=== PATIENT | female | born 1935 | race Caucasian/White ===

== ENCOUNTER → 2017-05-03 | Outpatient (CLI) | payer OTHER, MEDICARE ==
[2016-11-17 12:30] VITALS: BP 127/50
[2017-05-03 16:12] LABS: BASOPHILS # (AUTO) 0.1 X10^3/uL (0.0-0.1); BASOPHILS % (AUTO) 0.9 % (0.2-1.0); EOSINOPHILS % (AUTO) 0.5 % (0.9-2.9); HEMATOCRIT 34.6 % (36.0-47.0); HEMOGLOBIN 11.8 g/dL (12.0-16.0); LYMPHOCYTES # (AUTO) 1.1 X10^3/uL (1.3-2.9); LYMPHOCYTES % (AUTO) 15.1 % (21.0-51.0); MEAN CORPUSCULAR HEMOGLOBIN 31.4 pg (27.0-34.0); MEAN CORPUSCULAR VOLUME 92.3 fL (80.0-100.0); MEAN PLATELET VOLUME 8.2 fL (7.4-11.0); MONOCYTES # (AUTO) 0.9 x10^3/uL (0.3-0.8); MONOCYTES % (AUTO) 12.6 % (0.0-13.0); NEUTROPHILS # (AUTO) 5.2 x10^3/uL (2.2-4.8); NEUTROPHILS % (AUTO) 70.9 % (42.0-75.0); PLATELET COUNT 276 X10^3/uL (150.0-450.0); RED BLOOD COUNT 3.75 X10^6/uL (3.5-5.4); RED CELL DISTRIBUTION WIDTH 13.4 % (11.6-16.5); WHITE BLOOD COUNT 7.4 X10^3/uL (3.6-10.0)
== END ==
LOC: LAB 15:44
PROVIDERS: ATTEND Internal Medicine Gastroenterology
DX: D50.8 Other iron deficiency anemias (principal)
CPT/HCPCS: 36415; 85025

== ENCOUNTER 2023-06-17 07:14 | Inpatient (IN) ==
[2023-06-17] MEDS ORDERED: ZOFRAN INJ 4 MG VIAL ONE ×2 (07:17→09:26)
[2023-06-17] MEDS ORDERED: ZOFRAN INJ 4 MG VIAL IVP ONE ×2 (07:21→09:24)
--- NOTE | 2023-06-17 07:26 | DR.URIAD ---
HPI Time Seen Time Seen by Provider: 06/17/23 07:25 Complaint Chief Complaint Doctors Comments: Diagnosed with covid-19 on Tuesday at her doctor's office.Patient was given a prednisone shot and another shot that she can't remember. Patient presents because she feels like she has gone downhill since her diagnosis. She c/o,cough,bodyaches,weakness,abdl pain bilateral lower quadrant.Patient has a h/o Afib and takes eliquis.She denies: hemoptysis,hematmesis,hematochezia, headache,chest pain,back pain. PMH PMH Past Medical History: Arthritis Past Surgical History: Yes Surgical History: Unknown, Ortho Surgery and Tonsillectomy Family History Family Medical History: Cancer Social History Do you use any recreational Drugs:: No ROS Review of Systems Constitutional: Malaise Eyes: No Symptoms Reported ENTM: No Symptoms Reported Respiratoy: Dry Cough Cardiovascular: No Symptoms Reported; negative Chest Pain Gastrointestinal/Abdominal: Nausea; negative Diarrhea or Vomiting Genitourinary: No Symptoms Reported Neurological: Weakness; negative Headache, Numbness, Paresthesia, Tingling or Dizziness Musculoskeletal: No Symptoms Reported; negative Back Pain Integumentary: No Symptoms Reported Hematologic/Lymphatic: No Symptoms Reported Endocrine: No Symptoms Reported Psychiatric: No Symptoms Reported All Other Systems: Reviewed and Negative PE Vital Signs Vitals: Vital Signs Temperature 98.9 F Pulse Rate 89 Pulse Rate 95 Pulse Rate 127 Pulse Rate 98 Respiratory Rate 20 Blood Pressure 170/74 Blood Pressure 135/98 O2 Sat by Pulse Oximetry 98 O2 Sat by Pulse Oximetry 100 O2 Sat by Pulse Oximetry 98 O2 Sat by Pulse Oximetry 98 General Limitations: No Limitations General Appearance: Alert and In No Apparent Distress Head Head Exam: Normal Inspection Eyes Eye exam: Normal Appearance, PERRL and EOMI ENT ENT Exam: Normal Exam and Mucous Membranes Moist External Ear Exam: Normal External Inspection TM/Canal Exam: Bilateral: Normal Nose Exam: Normal Nose Exam Nasal Speculum Exam: Bilateral: Normal Mouth Exam: Normal Inspection Throat Exam: Normal Inspection Neck Neck Exam: Normal Inspection Chest Chest Inspection: Normal Inspection Respiratory Respiratory Exam: Normal Lung Sounds Bilat Respiratory Exam: Bilateral: Clear to Auscultation Cardiovascular Cardiovascular Exam: Regular Rate and Normal Rhythm Abdominal Exam Abdominal Exam: Normal Inspection, Normal Bowel Sounds, Soft and Tenderness Abdominal Tenderness: RLQ and LLQ Extremeties Extremities Exam: Normal Inspection Back Back Exam: Normal Inspection Neurologic Neurological Exam: Alert and Oriented X3 Psychiatric Psychiatric Exam: Normal Affect and Normal Mood Skin Skin Exam: Warm, Dry, Intact and Normal Color MDM Differential Diagnosis Differential Diagnosis: Pneumonia (Electrolyte abnormalities, UTI,OK,PE) COURSE Treatment Treatment: Patient was brought to a monitored room and had an 02 sat of 98%.Patient was nauseated and was given zofran 4mg iv.Patient is receiving NS bolus 500ml iv. 08:[address] Arce who will review labs and disposition patient. ROR Labs Reviewed 06/19/23 05:40 06/19/23 05:40 Laboratory: WBC 6.2 X10^3/uL (3.6-10.0) 06/17/23 07:37 RBC 4.25 X10^6/uL (3.5-5.4) 06/17/23 07:37 Hgb 13.3 g/dL (12.0-16.0) 06/17/23 07:37 Hct 39.0 % (36.0-47.0) 06/17/23 07:37 MCV 91.9 fL (80.0-100.0) 06/17/23 07:37 MCH 31.3 pg (27.0-34.0) 06/17/23 07:37 MCHC 34.1 g/dL (33.0-35.0) 06/17/23 07:37 RDW 13.2 % (11.6-16.5) 06/17/23 07:37 Plt Count 155 X10^3/uL (150.0-450.0) 06/17/23 07:37 MPV 9.1 fL (7.4-11.0) 06/17/23 07:37 Neut % (Auto) 76.5 % (42.0-75.0) H 06/17/23 07:37 Lymph % (Auto) 11.4 % (21.0-51.0) L 06/17/23 07:37 [place] % (Auto) 11.5 % (0.0-13.0) 06/17/23 07:37 Eos % (Auto) 0.4 % (0.9-2.9) L 06/17/23 07:37 Baso % (Auto) 0.2 % (0.2-1.0) 06/17/23 07:37 Neut # (Auto) 4.7 x10^3/uL (2.2-4.8) 06/17/23 07:37 Lymph # (Auto) 0.7 X10^3/uL (1.3-2.9) L 06/17/23 07:37 [place] # (Auto) 0.7 x10^3/uL (0.3-0.8) 06/17/23 07:37 Eos # (Auto) 0.0 x10^3/uL (0.0-0.2) 06/17/23 07:37 Baso # (Auto) 0.0 X10^3/uL (0.0-0.1) 06/17/23 07:37 Absolute Nucleated RBC 0.0 /100WBC 06/17/23 07:37 PT 14.6 SECONDS (11.8-14.3) 06/17/23 07:37 INR Target Range - 06/17/23 07:37 INR 1.16 (0.8-1.3) 06/17/23 07:37 APTT 32.6 SECONDS (22.9-36.5) 06/17/23 07:37 PTT Comment - 06/17/23 07:37 D-Dimer 1.25 ug/ml (0.0-0.57) H 06/17/23 07:37 Sodium 134 mmol/L (136-145) L 06/17/23 07:37 Corrected Sodium 135 mmol/L (136-145) L 06/17/23 07:37 Potassium 3.7 mmol/L (3.5-5.1) 06/17/23 07:37 Chloride 99 mmol/L (98-107) 06/17/23 07:37 Carbon Dioxide 24.5 mmol/L (21-32) 06/17/23 07:37 BUN 9 mg/dL (7-18) 06/17/23 07:37 Creatinine 0.71 mg/dL (0.55-1.02) 06/17/23 07:37 Est GFR (MDRD) Af Amer > 60 (>60) 06/17/23 07:37 Est GFR (MDRD) Non-Af > 60 (>60) 06/17/23 07:37 Glucose 130 mg/dL (65-99) H 06/17/23 07:37 Calcium 7.8 mg/dL (8.5-10.1) L 06/17/23 07:37 Corrected Calcium 8.4 mg/dL (8.5-10.1) L 06/17/23 07:37 Total Bilirubin 0.40 mg/dL (0.2-1.0) 06/17/23 07:37 AST 26 Units/L (15-37) 06/17/23 07:37 ALT 27 Units/L (12-78) 06/17/23 07:37 Alkaline Phosphatase 97 Units/L (46-116) 06/17/23 07:37 Creatine Kinase 64 Units/L (26-192) 06/17/23 07:37 Troponin I High Sens 10.1 ng/L (4.0-60.0) 06/17/23 07:37 Total Protein 6.0 g/dL (6.4-8.2) L 06/17/23 07:37 Albumin 3.2 g/dL (3.4-5.0) L 06/17/23 07:37 Globulin 2.8 g/dL (2.5-4.5) 06/17/23 07:37 Albumin/Globulin Ratio 1.1 Ratio (1.1-2.1) 06/17/23 07:37 Amylase 23 Units/L (25-115) L 06/17/23 07:37 Specimen Type Clean catch urine 06/17/23 08:25 Urine Color Straw (YELLOW) 06/17/23 08:25 Urine Appearance Clear (CLEAR) 06/17/23 08:25 Urine pH 7.0 (5.0 - 8.0) 06/17/23 08:25 Ur Specific [place] 1.015 (1.000-1.030) 06/17/23 08:25 Urine Protein Negative (NEGATIVE) 06/17/23 08:25 Urine Glucose (UA) Negative (NEGATIVE) 06/17/23 08:25 Urine Ketones 1+ (NEGATIVE) 06/17/23 08:25 Urine Blood Negative (NEGATIVE) 06/17/23 08:25 Urine Nitrite Negative (NEGATIVE) 06/17/23 08:25 Urine Bilirubin Negative (NEGATIVE) 06/17/23 08:25 Urine Urobilinogen Normal (NORMAL) 06/17/23 08:25 Ur Leukocyte Esterase Negative (NEGATIVE) 06/17/23 08:25 Opioid Opioid Risk Tool Total: 0 Total Score Risk Category: Low Risk Copyright: George MOODY predicting aberrant behaviors Discharge Plan Diagnosis Discharge Problem: COVID-19 Discharge Plan Patient Disposition: 09 ADMITTED INPATIENT Condition: Stable
[2023-06-17 07:45] LABS: BASOPHILS % (AUTO) 0.2 % (0.2-1.0); EOSINOPHILS % (AUTO) 0.4 % (0.9-2.9); HEMOGLOBIN 13.3 g/dL (12.0-16.0); LYMPHOCYTES # (AUTO) 0.7 X10^3/uL (1.3-2.9); LYMPHOCYTES % (AUTO) 11.4 % (21.0-51.0); MEAN CORPUSCULAR HEMOGLOBIN 31.3 pg (27.0-34.0); MEAN CORPUSCULAR HGB CONC 34.1 g/dL (33.0-35.0); MEAN CORPUSCULAR VOLUME 91.9 fL (80.0-100.0); MEAN PLATELET VOLUME 9.1 fL (7.4-11.0); MONOCYTES # (AUTO) 0.7 x10^3/uL (0.3-0.8); MONOCYTES % (AUTO) 11.5 % (0.0-13.0); NEUTROPHILS # (AUTO) 4.7 x10^3/uL (2.2-4.8); NEUTROPHILS % (AUTO) 76.5 % (42.0-75.0); PLATELET COUNT 155 X10^3/uL (150.0-450.0); RED BLOOD COUNT 4.25 X10^6/uL (3.5-5.4); RED CELL DISTRIBUTION WIDTH 13.2 % (11.6-16.5); WHITE BLOOD COUNT 6.2 X10^3/uL (3.6-10.0)
[2023-06-17 07:56] LABS: ALANINE AMINOTRANSFERASE 27 Units/L (12-78); ALBUMIN 3.2 g/dL (3.4-5.0); ALKALINE PHOSPHATASE 97 Units/L (46-116); ASPARTATE AMINO TRANSFERASE 26 Units/L (15-37); BLOOD UREA NITROGEN 9 mg/dL (7-18); CALCIUM 7.8 mg/dL (8.5-10.1); CARBON DIOXIDE 24.5 mmol/L (21-32); CHLORIDE 99 mmol/L (98-107); COR CA(FOR HYPOALB) 8.4 mg/dL (8.5-10.1); COR NA(FOR HYPERGLY) 135 mmol/L (136-145); CREATININE 0.71 mg/dL (0.55-1.02); GLUCOSE 130 mg/dL (65-99); POTASSIUM 3.7 mmol/L (3.5-5.1); SODIUM 134 mmol/L (136-145); eGFR NON BLACK RACES > 60 (>60)
[2023-06-17 08:09] LABS: INR 1.16 (0.8-1.3)
--- NOTE | 2023-06-17 08:28 | RAD ---
HISTORYWeakness, nausea, dyspneaSTUDYChest AP portableCOMPARISONNoneFINDINGSPatient is rotated to the left. Heart size is normal. Anastasiya are normal. Aorta is calcified. Lungs are free of acute infiltrates. No pleural effusions are identified. Bony thorax is unremarkable with the exception of osteopenia and thoracic dextroscoliosis.IMPRESSIONLungs clearElectronically signed by: URI WHARTON (Jun 17, 2023 08:26:52)
[2023-06-17 08:45] LABS: BILIRUBIN,URINE NEGATIVE (NEGATIVE); BLOOD/HEMOGLOBIN,URINE NEGATIVE (NEGATIVE); GLUCOSE, URINE NEGATIVE (NEGATIVE); KETONES,URINE 1+ (NEGATIVE); LEUKOCYTE ESTERASE ,URINE NEGATIVE (NEGATIVE); NITRITES,URINE NEGATIVE (NEGATIVE); PROTEIN,URINE NEGATIVE (NEGATIVE); UROBILINOGEN,URINE NORMAL (NORMAL)
[2023-06-17 08:47] LABS: APPEARANCE,URINE CLEAR (CLEAR); COLOR,URINE STRAW (YELLOW)
[2023-06-17] MEDS ORDERED: CATAPRES TAB 0.1 MG PO ONE ×2 (09:03→09:35)
[2023-06-17] MEDS ORDERED: CATAPRES TAB 0.1 MG ONE (09:06)
[2023-06-17] MEDS ORDERED: TESSALON PERLES PO ONE ×2 (09:21)
--- NOTE | 2023-06-17 09:26 | EKG ---
Test Reason : A-fib Blood Pressure : */* mmHG Vent. Rate : 96 BPM Atrial Rate : * BPM P-R Int : * ms QRS Dur : 72 ms QT Int : 364 ms P-R-T Axes : * -1 71 degrees QTc Int : 459 ms Atrial fibrillation Nonspecific ST and T wave abnormality Abnormal ECG No previous ECGs available Confirmed by Juan David Valero ([id number]) on 06/18/2023 6:28:52 AM Referred By: Confirmed By: Juan David Valero
[2023-06-17] MEDS ORDERED: ZOFRAN INJ 4 MG VIAL IVP PRN (09:47)
[2023-06-17] MEDS ORDERED: TESSALON PERLES PO PRN (09:47)
[2023-06-17] MEDS ORDERED: NS 1,000 ML IV 1,000 ML IV SCH (10:00)
[2023-06-17] MEDS: MOBIC TAB 15 MG PO SCH (13:45)
[2023-06-17] MEDS: ELIQUIS PO SCH ×2 (13:45→20:47)
[2023-06-17] MEDS: CARDIZEM CD 120 MG 24-HR PO SCH (13:46)
[2023-06-17] MEDS ORDERED: SOLU-Medrol 40 MG VIAL IVP SCH (15:00)
[2023-06-17] MEDS: NS 1,000 ML IV 1,000 ML IV SCH ×3 (15:01→23:30)
[2023-06-17] MEDS: LEVAQUIN PREMIX IV 500 MG 500 MG/100 ML BAG IV SCH (15:08)
[2023-06-17] MEDS ORDERED: DUONEB 0.5 MG/3 MG (3 mL) NEB ONE (16:12)
[2023-06-17] MEDS ORDERED: DUONEB 0.5 MG/3 MG (3 mL) NEB SCH (18:00)
[2023-06-17] MEDS ORDERED: ATIVAN INJ 2 MG VIAL IVP ONE (18:01)
[2023-06-17] MEDS ORDERED: ATIVAN INJ 2 MG VIAL ONE (18:06)
--- NOTE | 2023-06-17 21:49 | CT ---
EXAM:CTA, CHESTHISTORY:COVID +, ELEVATED D-DIMER;COMPARISON:Frontal chest radiograph June 17, 2023TECHNIQUE:CT angiography of the chest was performed utilizing intravenous contrast timed for peak pulmonary arterial enhancement. Three-dimensional and/or MIP imaging was performed by the technologist and reviewed.FINDINGS:Adequate bolus timing. Negative for pulmonary embolus. Severe scoliosis of the spine. The aorta demonstrates advanced multifocal atherosclerotic plaque. The ascending aorta is distended at 4.2 cm. No pericardial effusion.Limited evaluation of the upper abdomen demonstrates an abnormal masslike density in the tail of the pancreas spanning 4.5 by 3.0 cm incompletely evaluated and possibly representing pancreatic malignancy.Lung windows demonstrate bilateral ground-glass ill-defined nodular infiltrates suggesting infectious/inflammatory process. Some respiratory motion artifact reduces sensitivity.IMPRESSION:Negative for pulmonary embolus.Bilateral ground-glass ill-defined nodular infiltrates are reminiscent of COVID-19 pneumonia. Follow-up to document clearing is advised.Masslike density in the tail of the pancreas. Pancreatic malignancy may be present. Further workup is advised. Consider multiphase contrast-enhanced CT of the abdomen and pelvis for further detail versus multiphase abdominal MRI pancreatic mass protocol.THIS IS AN ELECTRONICALLY VERIFIED FINAL REPORT06/17/2023 9:46 PM - Electronically signed by Noman Walter MD
[2023-06-18 06:32] LABS: ALANINE AMINOTRANSFERASE 22 Units/L (12-78); ALBUMIN 2.8 g/dL (3.4-5.0); ALKALINE PHOSPHATASE 91 Units/L (46-116); ASPARTATE AMINO TRANSFERASE 23 Units/L (15-37); BLOOD UREA NITROGEN 6 mg/dL (7-18); CARBON DIOXIDE 24.7 mmol/L (21-32); CHLORIDE 103 mmol/L (98-107); COR NA(FOR HYPERGLY) 136 mmol/L (136-145); CREATININE 0.65 mg/dL (0.55-1.02); GLUCOSE 146 mg/dL (65-99); MAGNESIUM 1.9 mg/dL (2.0-2.9); POTASSIUM 4.1 mmol/L (3.5-5.1); SODIUM 135 mmol/L (136-145); TOTAL PROTEIN 5.4 g/dL (6.4-8.2); eGFR NON BLACK RACES > 60 (>60)
[2023-06-18 06:45] LABS: BASOPHILS % (AUTO) 0.1 % (0.2-1.0); EOSINOPHILS % (AUTO) 0.1 % (0.9-2.9); HEMOGLOBIN 12.2 g/dL (12.0-16.0); LYMPHOCYTES # (AUTO) 0.2 X10^3/uL (1.3-2.9); MEAN CORPUSCULAR HEMOGLOBIN 31.2 pg (27.0-34.0); MEAN CORPUSCULAR HGB CONC 33.8 g/dL (33.0-35.0); MEAN CORPUSCULAR VOLUME 92.1 fL (80.0-100.0); MEAN PLATELET VOLUME 8.8 fL (7.4-11.0); MONOCYTES # (AUTO) 0.2 x10^3/uL (0.3-0.8); MONOCYTES % (AUTO) 11.5 % (0.0-13.0); NEUTROPHILS # (AUTO) 1.3 x10^3/uL (2.2-4.8); NEUTROPHILS % (AUTO) 76.3 % (42.0-75.0); PLATELET COUNT 163 X10^3/uL (150.0-450.0); RED CELL DISTRIBUTION WIDTH 13.2 % (11.6-16.5)
[2023-06-18 06:53] LABS: WHITE BLOOD COUNT 1.8 X10^3/uL (3.6-10.0)
[2023-06-18] MEDS ORDERED: CONSULT PHARMACY - POTASSIUM & MAGNESIUM XX SCH (07:00)
[2023-06-18] MEDS: NS 1,000 ML IV 1,000 ML IV SCH ×3 (08:42→23:44)
[2023-06-18] MEDS: CARDIZEM CD 120 MG 24-HR PO SCH (08:43)
[2023-06-18] MEDS: MAG-OX TAB PO SCH ×2 (08:44→11:51)
[2023-06-18] MEDS: MOBIC TAB 15 MG PO SCH (08:44)
[2023-06-18] MEDS: ELIQUIS PO SCH ×2 (08:45→20:23)
[2023-06-18] MEDS: LEVAQUIN PREMIX IV 500 MG 500 MG/100 ML BAG IV SCH (08:46)
[2023-06-18] MEDS: SOLU-Medrol 40 MG VIAL IVP SCH (08:46)
[2023-06-18] MEDS ORDERED: OMNIPAQUE 350 mg/mL 100 mL BTL 100 ML ONE (10:06)
[2023-06-18] MEDS ORDERED: TUSSIONEX PENNKINETIC SUSP PO PRN (10:36)
[2023-06-18] MEDS ORDERED: PEPCID TAB 20 MG PO ONE (17:00)
--- NOTE | 2023-06-18 22:02 | DR.H&P ---
H&P History & Physical for Day of: H&P Date: 06/17/23 Chief Complaint Chief Complaint: Generalized weakness, cough Loss of appetite and taste Allergies Allergies Allergy/AdvReac Type Severity Reaction Status Date / Time procaine Allergy Verified 06/17/23 07:29 tetracycline Allergy Verified 06/17/23 09:06 History of Present Illness History of Present Illness: Patient is a 87-year-old female with a past medical history atrial fibrillation and arthritis. She states that she was recently diagnosed with COVID-19 and was treated outpatient but symptoms have not improved. Her symptoms include generalized weakness and decrease of appetite. Labs/imaging: WBC 6.2, hemoglobin 13.3, platelets 155, sodium 156, potassium 4.1, creatinine 0.65, glucose 146, D-dimer 1.25. Patient was admitted for dehydration and COVID-19. We will start on IV fluids normal saline, and IV Solu-Medrol 40 mg daily, antitussive medication, incentive spirometry. Patient does have productive sputum, will get culture of sputum and in the meantime we will start on IV Levaquin. Patient was started on bronchodilators but stated that it caused her to have palpitations. Patient does not required at this time because she does not require supplemental oxygen as her pulse ox has been greater than 90%. Due to elevated D-dimer we will get a CTA of the chest to further evaluate and rule out pulmonary embolism. Otherwise, we will continue with current treatment plan. Continue to monitor closely and follow-up labs/images in the morning. Past Medical History Past Medical History: Arthritis Additional Medical History: Atrial Fibrillation, Bronchitis, Pneumonia, Back Pain, Skin Cancer Past Surgical History Surgical History: Hysterectomy, Ortho Surgery and Tonsillectomy Additional Surgical History: Right Hip Replacement Family History Family Medical History: Cancer Social History Does patient currently use any type of tobacco product: No Have you used tobacco products in the last 12 months: No Type of Tobacco Use: None Does any household member use tobacco: No Alcohol Use: None Drug Use: None Medications Home Medications: Home Medications Medication Instructions Recorded Confirmed Type apixaban 5 mg tablet (Eliquis) 2.5 mg PO BID 06/17/23 06/17/23 History diltiazem HCl 240 mg 240 mg PO QDAY 06/17/23 06/17/23 History capsule,extended release 24 hr (Cartia XT) fluticasone propionate 50 1 spray intranasal BID PRN 06/17/23 06/17/23 History mcg/actuation nasal spray,suspension levofloxacin 500 mg tablet 500 mg PO TID 06/17/23 06/17/23 History meloxicam 15 mg tablet 15 mg PO QDAY 06/17/23 06/17/23 History methylprednisolone 4 mg tablets in 12 mg PO QDAY 06/17/23 06/17/23 History a dose pack molnupiravir 200 mg capsule (EUA) PO 06/17/23 History (Lagevrio) promethazine-DM 6.25 mg-15 mg/5 mL 5 ml PO Q4-6H PRN 06/17/23 06/17/23 History oral syrup Labs 06/18/23 06:37 06/18/23 05:17 Labs: 06/17/23 14:44 Sputum - Expectorated Sputum Sputum Culture - Preliminary 06/17/23 14:44 Sputum - Expectorated Sputum - Final Laboratory WBC 1.8 X10^3/uL (3.6-10.0) L* D 06/18/23 06:37 RBC 3.90 X10^6/uL (3.5-5.4) 06/18/23 06:37 Hgb 12.2 g/dL (12.0-16.0) 06/18/23 06:37 Hct 36.0 % (36.0-47.0) 06/18/23 06:37 MCV 92.1 fL (80.0-100.0) 06/18/23 06:37 MCH 31.2 pg (27.0-34.0) 06/18/23 06:37 MCHC 33.8 g/dL (33.0-35.0) 06/18/23 06:37 RDW 13.2 % (11.6-16.5) 06/18/23 06:37 Plt Count 163 X10^3/uL (150.0-450.0) 06/18/23 06:37 MPV 8.8 fL (7.4-11.0) 06/18/23 06:37 Neut % (Auto) 76.3 % (42.0-75.0) H 06/18/23 06:37 Lymph % (Auto) 12.0 % (21.0-51.0) L 06/18/23 06:37 [place] % (Auto) 11.5 % (0.0-13.0) 06/18/23 06:37 Eos % (Auto) 0.1 % (0.9-2.9) L 06/18/23 06:37 Baso % (Auto) 0.1 % (0.2-1.0) L 06/18/23 06:37 Neut # (Auto) 1.3 x10^3/uL (2.2-4.8) L 06/18/23 06:37 Lymph # (Auto) 0.2 X10^3/uL (1.3-2.9) L 06/18/23 06:37 [place] # (Auto) 0.2 x10^3/uL (0.3-0.8) L 06/18/23 06:37 Eos # (Auto) 0.0 x10^3/uL (0.0-0.2) 06/18/23 06:37 Baso # (Auto) 0.0 X10^3/uL (0.0-0.1) 06/18/23 06:37 Absolute Nucleated RBC 0.1 /100WBC 06/18/23 06:37 PT 14.6 SECONDS (11.8-14.3) 06/17/23 07:37 INR Target Range - 06/17/23 07:37 INR 1.16 (0.8-1.3) 06/17/23 07:37 APTT 32.6 SECONDS (22.9-36.5) 06/17/23 07:37 PTT Comment - 06/17/23 07:37 D-Dimer 1.25 ug/ml (0.0-0.57) H 06/17/23 07:37 Sodium 135 mmol/L (136-145) L 06/18/23 05:17 Corrected Sodium 136 mmol/L (136-145) 06/18/23 05:17 Potassium 4.1 mmol/L (3.5-5.1) 06/18/23 05:17 Chloride 103 mmol/L (98-107) 06/18/23 05:17 Carbon Dioxide 24.7 mmol/L (21-32) 06/18/23 05:17 BUN 6 mg/dL (7-18) L 06/18/23 05:17 Creatinine 0.65 mg/dL (0.55-1.02) 06/18/23 05:17 Est GFR (MDRD) Af Amer > 60 (>60) 06/18/23 05:17 Est GFR (MDRD) Non-Af > 60 (>60) 06/18/23 05:17 Glucose 146 mg/dL (65-99) H 06/18/23 05:17 Calcium 8.0 mg/dL (8.5-10.1) L 06/18/23 05:17 Corrected Calcium 9.0 mg/dL (8.5-10.1) 06/18/23 05:17 Magnesium 1.9 mg/dL (2.0-2.9) L 06/18/23 05:17 Total Bilirubin 0.30 mg/dL (0.2-1.0) 06/18/23 05:17 AST 23 Units/L (15-37) 06/18/23 05:17 ALT 22 Units/L (12-78) 06/18/23 05:17 Alkaline Phosphatase 91 Units/L (46-116) 06/18/23 05:17 Creatine Kinase 64 Units/L (26-192) 06/17/23 07:37 Troponin I High Sens 9.0 ng/L (4.0-60.0) 06/17/23 19:55 Total Protein 5.4 g/dL (6.4-8.2) L 06/18/23 05:17 Albumin 2.8 g/dL (3.4-5.0) L 06/18/23 05:17 Globulin 2.6 g/dL (2.5-4.5) 06/18/23 05:17 Albumin/Globulin Ratio 1.1 Ratio (1.1-2.1) 06/18/23 05:17 Amylase 23 Units/L (25-115) L 06/17/23 07:37 Specimen Type Clean catch urine 06/17/23 08:25 Urine Color Straw (YELLOW) 06/17/23 08:25 Urine Appearance Clear (CLEAR) 06/17/23 08:25 Urine pH 7.0 (5.0 - 8.0) 06/17/23 08:25 Ur Specific [place] 1.015 (1.000-1.030) 06/17/23 08:25 Urine Protein Negative (NEGATIVE) 06/17/23 08:25 Urine Glucose (UA) Negative (NEGATIVE) 06/17/23 08:25 Urine Ketones 1+ (NEGATIVE) 06/17/23 08:25 Urine Blood Negative (NEGATIVE) 06/17/23 08:25 Urine Nitrite Negative (NEGATIVE) 06/17/23 08:25 Urine Bilirubin Negative (NEGATIVE) 06/17/23 08:25 Urine Urobilinogen Normal (NORMAL) 06/17/23 08:25 Ur Leukocyte Esterase Negative (NEGATIVE) 06/17/23 08:25 Review of Systems Constitutional: Weakness Eyes: No Symptoms Reported ENT: No Symptoms Reported Respiratory: Cough and Shortness of Breath Cardiovascular: No Symptoms Reported Gastrointestinal: No Symptoms Reported Genitourinary: No Symptoms Reported Musculoskeletal: No Symptoms Reported Skin: No Symptoms Reported Neurological: No Symptoms Reported Physical Exam Vital Signs: Vital Signs Temperature 97.9 F Temperature 98.6 F Pulse Rate [Left Brachial] 93 Pulse Rate [Left Brachial] 78 Respiratory Rate 20 Respiratory Rate 20 Blood Pressure [Left Arm] 145/65 Blood Pressure [Left Arm] 128/60 O2 Sat by Pulse Oximetry 97 O2 Sat by Pulse Oximetry 97 Oriented: Normal Eyes: Normal Ear: Normal Nose: Normal Throat: Normal Respiratory: Clear Throughout Cardiovascular: Normal : Normal Auscultation: Bowel Sounds: Normal Palpation: Normal Tenderness: Normal Skin: Normal Musculoskeletal: Normal Psychiatric: Normal Mood Description: Calm and Appropriate Affect: Normal Speech Pattern: Clear and Appropriate Assessment/Plan (1) Pneumonia due to COVID-19 virus: Status: Acute (2) Dehydration: Status: Acute (3) A-fib: Qualifiers: Atrial fibrillation type: chronic Qualified Code(s): I48.2 - Chronic atrial fibrillation Status: Inactive Review H&P Reviewed: Yes Patient was examined?: Yes
--- NOTE | 2023-06-18 22:12 | PCM.PROG ---
Progress Note Progress Note for Day of Date of Exam: 06/18/23 Subjective Subjective: Patient is a 87-year-old female with a past medical history atrial fibrillation and arthritis admitted for COVID-19 pneumonia and dehydration. This morning she does report some improvement in her symptoms including energy and strength. She does state that she is able to eat a little bit more. No acute events overnight. Labs/imaging: WBC 1.8, hemoglobin 12.2, platelets 163, sodium 136, potassium 4.1, creatinine 0.65, glucose 146, CTA of the chest was obtained that revealed: Negative for pulmonary embolus. Bilateral ground-glass ill-defined nodular infiltrates are reminiscent of COVID-19 pneumonia. Mass-like density in the tail of the pancreas. Pancreatic malignancy may be present. Further workup is advised. Will continue with IV fluids normal saline, and IV Solu-Medrol 40 mg daily, antitussive medication, incentive spirometry, IV Levaquin, sputum culture pending. Will get CT abdomen and pelvis due to incidental finding shown on the CTA of the chest as well as a CA 199. Otherwise, we will continue with current treatment plan. Continue to monitor closely and follow-up labs/images in the morning. Past Medical Family Social History Allergies: Allergies procaine Allergy (Verified 06/17/23 07:29) tetracycline Allergy (Verified 06/17/23 09:06) Review of Systems ROS changes noted: See HPI Vital Signs and I&O's Vital Signs: Vital Signs Temperature 97.9 F Temperature 98.6 F Pulse Rate [Left Brachial] 93 Pulse Rate [Left Brachial] 78 Respiratory Rate 20 Respiratory Rate 20 Blood Pressure [Left Arm] 145/65 Blood Pressure [Left Arm] 128/60 O2 Sat by Pulse Oximetry 97 O2 Sat by Pulse Oximetry 97 Intake and Output: Intake & Output 06/15/23 06/16/23 06/17/23 06/18/23 23:59 23:59 23:59 23:59 Intake Total 1000 / 1240 1188 / 1188 Balance 1000 / 1240 1188 / 1188 Physical Exam Oriented: Normal Eyes: Normal Ear: Normal Nose: Normal Throat: Normal Respiratory: Normal Cardiovascular: Normal : Normal Auscultation: Bowel Sounds: Normal Palpation: Normal Tenderness: Normal Skin: Normal Musculoskeletal: Normal Psychiatric: Normal Mood Description: Calm and Appropriate Affect: Normal Speech Pattern: Clear and Appropriate Laboratory and Diagnostics 06/18/23 06:37 06/18/23 05:17 Labs: 06/17/23 14:44 Sputum - Expectorated Sputum Sputum Culture - Preliminary 06/17/23 14:44 Sputum - Expectorated Sputum - Final Laboratory WBC 1.8 X10^3/uL (3.6-10.0) L* D 06/18/23 06:37 RBC 3.90 X10^6/uL (3.5-5.4) 06/18/23 06:37 Hgb 12.2 g/dL (12.0-16.0) 06/18/23 06:37 Hct 36.0 % (36.0-47.0) 06/18/23 06:37 MCV 92.1 fL (80.0-100.0) 06/18/23 06:37 MCH 31.2 pg (27.0-34.0) 06/18/23 06:37 MCHC 33.8 g/dL (33.0-35.0) 06/18/23 06:37 RDW 13.2 % (11.6-16.5) 06/18/23 06:37 Plt Count 163 X10^3/uL (150.0-450.0) 06/18/23 06:37 MPV 8.8 fL (7.4-11.0) 06/18/23 06:37 Neut % (Auto) 76.3 % (42.0-75.0) H 06/18/23 06:37 Lymph % (Auto) 12.0 % (21.0-51.0) L 06/18/23 06:37 [place] % (Auto) 11.5 % (0.0-13.0) 06/18/23 06:37 Eos % (Auto) 0.1 % (0.9-2.9) L 06/18/23 06:37 Baso % (Auto) 0.1 % (0.2-1.0) L 06/18/23 06:37 Neut # (Auto) 1.3 x10^3/uL (2.2-4.8) L 06/18/23 06:37 Lymph # (Auto) 0.2 X10^3/uL (1.3-2.9) L 06/18/23 06:37 [place] # (Auto) 0.2 x10^3/uL (0.3-0.8) L 06/18/23 06:37 Eos # (Auto) 0.0 x10^3/uL (0.0-0.2) 06/18/23 06:37 Baso # (Auto) 0.0 X10^3/uL (0.0-0.1) 06/18/23 06:37 Absolute Nucleated RBC 0.1 /100WBC 06/18/23 06:37 PT 14.6 SECONDS (11.8-14.3) 06/17/23 07:37 INR Target Range - 06/17/23 07:37 INR 1.16 (0.8-1.3) 06/17/23 07:37 APTT 32.6 SECONDS (22.9-36.5) 06/17/23 07:37 PTT Comment - 06/17/23 07:37 D-Dimer 1.25 ug/ml (0.0-0.57) H 06/17/23 07:37 Sodium 135 mmol/L (136-145) L 06/18/23 05:17 Corrected Sodium 136 mmol/L (136-145) 06/18/23 05:17 Potassium 4.1 mmol/L (3.5-5.1) 06/18/23 05:17 Chloride 103 mmol/L (98-107) 06/18/23 05:17 Carbon Dioxide 24.7 mmol/L (21-32) 06/18/23 05:17 BUN 6 mg/dL (7-18) L 06/18/23 05:17 Creatinine 0.65 mg/dL (0.55-1.02) 06/18/23 05:17 Est GFR (MDRD) Af Amer > 60 (>60) 06/18/23 05:17 Est GFR (MDRD) Non-Af > 60 (>60) 06/18/23 05:17 Glucose 146 mg/dL (65-99) H 06/18/23 05:17 Calcium 8.0 mg/dL (8.5-10.1) L 06/18/23 05:17 Corrected Calcium 9.0 mg/dL (8.5-10.1) 06/18/23 05:17 Magnesium 1.9 mg/dL (2.0-2.9) L 06/18/23 05:17 Total Bilirubin 0.30 mg/dL (0.2-1.0) 06/18/23 05:17 AST 23 Units/L (15-37) 06/18/23 05:17 ALT 22 Units/L (12-78) 06/18/23 05:17 Alkaline Phosphatase 91 Units/L (46-116) 06/18/23 05:17 Creatine Kinase 64 Units/L (26-192) 06/17/23 07:37 Troponin I High Sens 9.0 ng/L (4.0-60.0) 06/17/23 19:55 Total Protein 5.4 g/dL (6.4-8.2) L 06/18/23 05:17 Albumin 2.8 g/dL (3.4-5.0) L 06/18/23 05:17 Globulin 2.6 g/dL (2.5-4.5) 06/18/23 05:17 Albumin/Globulin Ratio 1.1 Ratio (1.1-2.1) 06/18/23 05:17 Amylase 23 Units/L (25-115) L 06/17/23 07:37 Specimen Type Clean catch urine 06/17/23 08:25 Urine Color Straw (YELLOW) 06/17/23 08:25 Urine Appearance Clear (CLEAR) 06/17/23 08:25 Urine pH 7.0 (5.0 - 8.0) 06/17/23 08:25 Ur Specific [place] 1.015 (1.000-1.030) 06/17/23 08:25 Urine Protein Negative (NEGATIVE) 06/17/23 08:25 Urine Glucose (UA) Negative (NEGATIVE) 06/17/23 08:25 Urine Ketones 1+ (NEGATIVE) 06/17/23 08:25 Urine Blood Negative (NEGATIVE) 06/17/23 08:25 Urine Nitrite Negative (NEGATIVE) 06/17/23 08:25 Urine Bilirubin Negative (NEGATIVE) 06/17/23 08:25 Urine Urobilinogen Normal (NORMAL) 06/17/23 08:25 Ur Leukocyte Esterase Negative (NEGATIVE) 06/17/23 08:25 Plan (1) Pneumonia due to COVID-19 virus: Status: Acute (2) Dehydration: Status: Acute (3) A-fib: Status: Inactive Qualifiers: Atrial fibrillation type: chronic Qualified Code(s): I48.2 - Chronic at [facility] fibrillation
[2023-06-19] MEDS: NS 1,000 ML IV 1,000 ML IV SCH ×3 (06:02→22:39)
[2023-06-19 06:24] LABS: BASOPHILS % (AUTO) 0.1 % (0.2-1.0); HEMATOCRIT 34.6 % (36.0-47.0); HEMOGLOBIN 11.8 g/dL (12.0-16.0); LYMPHOCYTES # (AUTO) 0.5 X10^3/uL (1.3-2.9); MEAN CORPUSCULAR HEMOGLOBIN 31.5 pg (27.0-34.0); MEAN CORPUSCULAR HGB CONC 34.2 g/dL (33.0-35.0); MEAN PLATELET VOLUME 8.4 fL (7.4-11.0); MONOCYTES # (AUTO) 0.8 x10^3/uL (0.3-0.8); NEUTROPHILS % (AUTO) 78.9 % (42.0-75.0); PLATELET COUNT 197 X10^3/uL (150.0-450.0); RED BLOOD COUNT 3.76 X10^6/uL (3.5-5.4); RED CELL DISTRIBUTION WIDTH 13.4 % (11.6-16.5); WHITE BLOOD COUNT 6.3 X10^3/uL (3.6-10.0)
[2023-06-19 06:39] LABS: ALANINE AMINOTRANSFERASE 28 Units/L (12-78); ALBUMIN 2.6 g/dL (3.4-5.0); ALKALINE PHOSPHATASE 81 Units/L (46-116); ASPARTATE AMINO TRANSFERASE 27 Units/L (15-37); BLOOD UREA NITROGEN 11 mg/dL (7-18); CARBON DIOXIDE 24.8 mmol/L (21-32); CHLORIDE 104 mmol/L (98-107); COR CA(FOR HYPOALB) 9.1 mg/dL (8.5-10.1); COR NA(FOR HYPERGLY) 136 mmol/L (136-145); CREATININE 0.89 mg/dL (0.55-1.02); GLUCOSE 127 mg/dL (65-99); POTASSIUM 4.4 mmol/L (3.5-5.1); SODIUM 135 mmol/L (136-145); TOTAL PROTEIN 5.1 g/dL (6.4-8.2); eGFR NON BLACK RACES > 60 (>60)
[2023-06-19] MEDS: CARDIZEM CD 120 MG 24-HR PO SCH (08:35)
[2023-06-19] MEDS: SOLU-Medrol 40 MG VIAL IVP SCH (08:36)
[2023-06-19] MEDS: PEPCID TAB 20 MG PO SCH ×2 (08:36→20:07)
[2023-06-19] MEDS: LEVAQUIN PREMIX IV 500 MG 500 MG/100 ML BAG IV SCH (08:36)
[2023-06-19] MEDS: MOBIC TAB 15 MG PO SCH (08:36)
[2023-06-19] MEDS: ELIQUIS PO SCH ×2 (08:36→20:08)
[2023-06-19] MEDS: COLACE CAP 100 MG PO PRN ×2 (08:51→20:07)
--- NOTE | 2023-06-19 11:22 | CT ---
HISTORYFollow-up of possible pancreatic mass seen on CTA chest.STUDYCT abdomen and pelvis with contrastCOMPARISONCTA chest from 06/17/2023.TECHNIQUEMultiple axial images of the abdomen and pelvis were obtained from the lung bases to the pubic symphysis after the administration of IV contrast. Dose reduction techniques including Automated Exposure Control (AEC) and adjustment of mA and kV were utilized.FINDINGSLower chest: Previously reported bibasilar ground-glass opacities have not significantly changed. No new acute findings.Liver: There is steatosis with scattered probable cysts throughout the liver measuring less than 1 cm. No other significant abnormality.Biliary: The gallbladder is unremarkable. No biliary ductal dilatation.Pancreas: A hypoattenuating ovoid pancreatic tail mass measures 3.8 x 2.4 cm on image 31 of series 3. Generalized atrophy is seen elsewhere along the pancreas without other significant abnormalities.Adrenals: No significant abnormality.Spleen: No significant abnormality.Kidneys and ureters: No significant abnormality.Stomach and bowel: There is noninflamed sigmoid diverticulosis without other significant abnormalities. The appendix is not seen.Peritoneum: No free fluid, free air or fluid collection.Vasculature:There is moderate atherosclerosis without other significant abnormalities.Lymph nodes: No adenopathy.Bladder: No significant abnormality.Reproductive organs: Prior hysterectomy. No significant adnexal abnormality.Additional findings: None.Bones: No acute findings. There are degenerative changes of the spine with demineralization of the bones and moderate thoracolumbar scoliosis. Severe degenerative changes are noted along the spine and pelvis with expected positioning of a right hip arthroplasty.IMPRESSIONIndeterminate pancreatic tail mass may represent primary carcinoma of the pancreas or sequela of prior pancreatitis. No evidence of metastatic disease or other acute abdominopelvic findings.Electronically signed by: Hilario Vences (Jun 19, 2023 11:20:17)
--- NOTE | 2023-06-19 17:42 | PCM.PROG ---
Progress Note Progress Note for Day of Date of Exam: 06/19/23 Subjective Subjective: Patient is a 87-year-old female with a past medical history atrial fibrillation and arthritis admitted for COVID-19 pneumonia and dehydration. This morning she continues to improve and her appetite has as well. No acute events overnight. Labs/imaging: WBC 6.3, hemoglobin 11.8, platelets 197, sodium 135, potassium 4.4, creatinine 0.89, glucose 127, CT abdomen and pelvis was obtained that revealed: Indeterminate pancreatic tail mass may represent primary carcinoma of the pancreas or sequela of prior pancreatitis. No evidence of metastatic disease or other acute abdominopelvic findings. Will continue with IV fluids normal saline, and IV Solu-Medrol 40 mg daily, antitussive medication, incentive spirometry, IV Levaquin, sputum culture pending. CA 199 pending. Pt will need outpatient surgery referral for pancreatic mass. Otherwise, we will continue with current treatment plan. Continue to monitor closely and follow-up labs/images in the morning. Past Medical Family Social History Allergies: Allergies procaine Allergy (Verified 06/17/23 07:29) tetracycline Allergy (Verified 06/17/23 09:06) Review of Systems ROS changes noted: see HPI Vital Signs and I&O's Vital Signs: Vital Signs Temperature 98.7 F Temperature 98.3 F Pulse Rate [Left Brachial] 114 Pulse Rate [Left Brachial] 91 Respiratory Rate 20 Respiratory Rate 20 Blood Pressure [Left Arm] 144/80 Blood Pressure [Left Arm] 181/85 O2 Sat by Pulse Oximetry 95 O2 Sat by Pulse Oximetry 93 Intake and Output: Intake & Output 06/16/23 06/17/23 06/18/23 06/19/23 23:59 23:59 23:59 23:59 Intake Total 1000 / 1240 2195 / 2195 2856 / 2856 Balance 1000 / 1240 2195 / 2195 2856 / 2856 Physical Exam Oriented: Normal Eyes: Normal Ear: Normal Nose: Normal Throat: Normal Respiratory: Normal Cardiovascular: Normal : Normal Auscultation: Bowel Sounds: Normal Tenderness: Normal Skin: Normal Musculoskeletal: Normal Psychiatric: Normal Mood Description: Calm and Appropriate Affect: Normal Speech Pattern: Clear and Appropriate Laboratory and Diagnostics 06/19/23 05:40 06/19/23 05:40 Labs: 06/17/23 14:44 Sputum - Expectorated Sputum Sputum Culture - Preliminary Klebsiella Pneumoniae 06/17/23 14:44 Sputum - Expectorated Sputum - Final Laboratory WBC 6.3 X10^3/uL (3.6-10.0) 06/19/23 05:40 RBC 3.76 X10^6/uL (3.5-5.4) 06/19/23 05:40 Hgb 11.8 g/dL (12.0-16.0) L 06/19/23 05:40 Hct 34.6 % (36.0-47.0) L 06/19/23 05:40 MCV 92.0 fL (80.0-100.0) 06/19/23 05:40 MCH 31.5 pg (27.0-34.0) 06/19/23 05:40 MCHC 34.2 g/dL (33.0-35.0) 06/19/23 05:40 RDW 13.4 % (11.6-16.5) 06/19/23 05:40 Plt Count 197 X10^3/uL (150.0-450.0) 06/19/23 05:40 MPV 8.4 fL (7.4-11.0) 06/19/23 05:40 Neut % (Auto) 78.9 % (42.0-75.0) H 06/19/23 05:40 Lymph % (Auto) 8.0 % (21.0-51.0) L 06/19/23 05:40 [place] % (Auto) 13.0 % (0.0-13.0) 06/19/23 05:40 Eos % (Auto) 0.0 % (0.9-2.9) L 06/19/23 05:40 Baso % (Auto) 0.1 % (0.2-1.0) L 06/19/23 05:40 Neut # (Auto) 5.0 x10^3/uL (2.2-4.8) H 06/19/23 05:40 Lymph # (Auto) 0.5 X10^3/uL (1.3-2.9) L 06/19/23 05:40 [place] # (Auto) 0.8 x10^3/uL (0.3-0.8) 06/19/23 05:40 Eos # (Auto) 0.0 x10^3/uL (0.0-0.2) 06/19/23 05:40 Baso # (Auto) 0.0 X10^3/uL (0.0-0.1) 06/19/23 05:40 Absolute Nucleated RBC 0.1 /100WBC 06/19/23 05:40 PT 14.6 SECONDS (11.8-14.3) 06/17/23 07:37 INR Target Range - 06/17/23 07:37 INR 1.16 (0.8-1.3) 06/17/23 07:37 APTT 32.6 SECONDS (22.9-36.5) 06/17/23 07:37 PTT Comment - 06/17/23 07:37 D-Dimer 1.25 ug/ml (0.0-0.57) H 06/17/23 07:37 Sodium 135 mmol/L (136-145) L 06/19/23 05:40 Corrected Sodium 136 mmol/L (136-145) 06/19/23 05:40 Potassium 4.4 mmol/L (3.5-5.1) 06/19/23 05:40 Chloride 104 mmol/L (98-107) 06/19/23 05:40 Carbon Dioxide 24.8 mmol/L (21-32) 06/19/23 05:40 BUN 11 mg/dL (7-18) 06/19/23 05:40 Creatinine 0.89 mg/dL (0.55-1.02) 06/19/23 05:40 Est GFR (MDRD) Af Amer > 60 (>60) 06/19/23 05:40 Est GFR (MDRD) Non-Af > 60 (>60) 06/19/23 05:40 Glucose 127 mg/dL (65-99) H 06/19/23 05:40 Calcium 8.0 mg/dL (8.5-10.1) L 06/19/23 05:40 Corrected Calcium 9.1 mg/dL (8.5-10.1) 06/19/23 05:40 Magnesium 2.0 mg/dL (2.0-2.9) 06/19/23 05:40 Total Bilirubin 0.30 mg/dL (0.2-1.0) 06/19/23 05:40 AST 27 Units/L (15-37) 06/19/23 05:40 ALT 28 Units/L (12-78) 06/19/23 05:40 Alkaline Phosphatase 81 Units/L (46-116) 06/19/23 05:40 Creatine Kinase 64 Units/L (26-192) 06/17/23 07:37 Troponin I High Sens 9.0 ng/L (4.0-60.0) 06/17/23 19:55 Total Protein 5.1 g/dL (6.4-8.2) L 06/19/23 05:40 Albumin 2.6 g/dL (3.4-5.0) L 06/19/23 05:40 Globulin 2.5 g/dL (2.5-4.5) 06/19/23 05:40 Albumin/Globulin Ratio 1.0 Ratio (1.1-2.1) L 06/19/23 05:40 Amylase 23 Units/L (25-115) L 06/17/23 07:37 Specimen Type Clean catch urine 06/17/23 08:25 Urine Color Straw (YELLOW) 06/17/23 08:25 Urine Appearance Clear (CLEAR) 06/17/23 08:25 Urine pH 7.0 (5.0 - 8.0) 06/17/23 08:25 Ur Specific [place] 1.015 (1.000-1.030) 06/17/23 08:25 Urine Protein Negative (NEGATIVE) 06/17/23 08:25 Urine Glucose (UA) Negative (NEGATIVE) 06/17/23 08:25 Urine Ketones 1+ (NEGATIVE) 06/17/23 08:25 Urine Blood Negative (NEGATIVE) 06/17/23 08:25 Urine Nitrite Negative (NEGATIVE) 06/17/23 08:25 Urine Bilirubin Negative (NEGATIVE) 06/17/23 08:25 Urine Urobilinogen Normal (NORMAL) 06/17/23 08:25 Ur Leukocyte Esterase Negative (NEGATIVE) 06/17/23 08:25 Plan (1) Pneumonia due to COVID-19 virus: Status: Acute (2) Dehydration: Status: Acute (3) A-fib: Status: Inactive Qualifiers: Atrial fibrillation type: chronic Qualified Code(s): I48.2 - Chronic atrial fibrillation
[2023-06-19] MEDS ORDERED: MILK OF MAGNESIA PO PRN (19:03)
[2023-06-20 05:44] LABS: BASOPHILS % (AUTO) 0.1 % (0.2-1.0); HEMATOCRIT 37.3 % (36.0-47.0); HEMOGLOBIN 12.8 g/dL (12.0-16.0); LYMPHOCYTES # (AUTO) 0.7 X10^3/uL (1.3-2.9); LYMPHOCYTES % (AUTO) 6.1 % (21.0-51.0); MEAN CORPUSCULAR HEMOGLOBIN 31.7 pg (27.0-34.0); MEAN CORPUSCULAR HGB CONC 34.5 g/dL (33.0-35.0); MEAN PLATELET VOLUME 8.6 fL (7.4-11.0); MONOCYTES # (AUTO) 1.2 x10^3/uL (0.3-0.8); MONOCYTES % (AUTO) 11.1 % (0.0-13.0); NEUTROPHILS # (AUTO) 8.9 x10^3/uL (2.2-4.8); NEUTROPHILS % (AUTO) 82.7 % (42.0-75.0); PLATELET COUNT 253 X10^3/uL (150.0-450.0); RED BLOOD COUNT 4.05 X10^6/uL (3.5-5.4); RED CELL DISTRIBUTION WIDTH 13.7 % (11.6-16.5); WHITE BLOOD COUNT 10.8 X10^3/uL (3.6-10.0)
[2023-06-20 06:04] LABS: ALANINE AMINOTRANSFERASE 30 Units/L (12-78); ALBUMIN 2.7 g/dL (3.4-5.0); ALKALINE PHOSPHATASE 85 Units/L (46-116); ASPARTATE AMINO TRANSFERASE 23 Units/L (15-37); BLOOD UREA NITROGEN 11 mg/dL (7-18); CARBON DIOXIDE 27.7 mmol/L (21-32); CHLORIDE 105 mmol/L (98-107); COR NA(FOR HYPERGLY) 138 mmol/L (136-145); CREATININE 0.72 mg/dL (0.55-1.02); GLUCOSE 114 mg/dL (65-99); POTASSIUM 3.7 mmol/L (3.5-5.1); SODIUM 138 mmol/L (136-145); TOTAL PROTEIN 5.4 g/dL (6.4-8.2); eGFR NON BLACK RACES > 60 (>60)
[2023-06-20] MEDS: NS 1,000 ML IV 1,000 ML IV SCH (06:12)
[2023-06-20] MEDS ORDERED: CONSULT PHARMACY - POTASSIUM & MAGNESIUM XX SCH (07:00)
--- NOTE | 2023-06-20 08:03 | RAD ---
HISTORYPneumoniaSTUDYPA chestCOMPARISONSeptember 2022FINDINGSThe heart is not significantly enlarged. There is slight bilateral interstitial prominence without evidence for airspace consolidation, adenopathy or pleural fluid.IMPRESSIONNo localized pulmonary lesion identified. The mild interstitial prominence is nonspecific but may reflect the inflammatory infiltrates described on recent CTA chest.Electronically signed by: HEBER BALES (Jun 20, 2023 08:01:28)
[2023-06-20] MEDS ORDERED: TYLENOL 325 MG TAB PO PRN (08:22)
[2023-06-20] MEDS ORDERED: MAGIC MOUTHWASH (Orig. Formula) MT PRN (08:33)
--- NOTE | 2023-06-20 08:41 | W.DIS.FURT ---
Summary of Discharge Discharge Summary of Date Date of Exam: 06/20/23 Admission Date Date of Admission: 06/17/23 Admission Diagnosis Patient Problems (Updated 06/19/23 @ 21:00 by Rocio Turcios) COVID-19 (Acute) U07.1 Hospital Course: Patient is a 87-year-old female with a past medical history atrial fibrillation and arthritis admitted for COVID-19 pneumonia and dehydration. Her hospital/tr eatment course included: IV fluids normal saline, and IV Solu-Medrol 40 mg daily, antitussive medication, incentive spirometry, IV Levaquin. Sputum culture positive for Klebsiella pneu. that is susceptible to levaquin. CT abdomen and pelvis was obtained that revealed: Indeterminate pancreatic tail mass may represent primary carcinoma of the pancreas or sequela of prior pancreatitis. No evidence of metastatic disease or other acute abdominopelvic findings. CA 199 pending to be followed outpatient. Pt will be referred to general surgery outpatient for further evaluation of pancreatic mass. Pt responded well to treatment and symptoms significantly improved. Pt discharged in stable condition. Rx levaquin x 4 days. Pt instructed to follow up with pcp and general surgery-Dr Hernandez in 1 week. Vital Signs: Vital Signs (72 hours) 06/17/23 08:45 06/17/23 09:00 06/17/23 09:00 Temperature Pulse Rate 94 H 97 H Pulse Rate [Left Brachial] Respiratory Rate Blood Pressure 166/78 Blood Pressure [Left Arm] O2 Sat by Pulse Oximetry 95 98 Oxygen Delivery Method Oxygen Flow Rate 06/17/23 09:18 06/17/23 09:30 06/17/23 09:31 Temperature Pulse Rate 107 H 97 H 97 H Pulse Rate [Left Brachial] Respiratory Rate Blood Pressure Blood Pressure [Left Arm] O2 Sat by Pulse Oximetry 94 L 97 96 Oxygen Delivery Method Oxygen Flow Rate 06/17/23 09:31 06/17/23 09:45 06/17/23 10:00 Temperature Pulse Rate 86 91 H Pulse Rate [Left Brachial] Respiratory Rate Blood Pressure 197/86 Blood Pressure [Left Arm] O2 Sat by Pulse Oximetry 95 96 Oxygen Delivery Method Oxygen Flow Rate 06/17/23 10:01 06/17/23 10:01 06/17/23 10:15 Temperature Pulse Rate 90 81 Pulse Rate [Left Brachial] Respiratory Rate Blood Pressure 155/66 Blood Pressure [Left Arm] O2 Sat by Pulse Oximetry 93 L 94 L Oxygen Delivery Method Oxygen Flow Rate 06/17/23 10:30 06/17/23 10:31 06/17/23 10:31 Temperature Pulse Rate 79 81 Pulse Rate [Left Brachial] Respiratory Rate Blood Pressure 142/98 Blood Pressure [Left Arm] O2 Sat by Pulse Oximetry 92 L 93 L Oxygen Delivery Method Oxygen Flow Rate 06/17/23 10:45 06/17/23 11:00 06/17/23 11:01 Temperature Pulse Rate 80 74 Pulse Rate [Left Brachial] Respiratory Rate Blood Pressure 135/60 Blood Pressure [Left Arm] O2 Sat by Pulse Oximetry 94 L 94 L Oxygen Delivery Method Oxygen Flow Rate 06/17/23 11:01 06/17/23 11:15 06/17/23 09:46 Temperature Pulse Rate 75 75 Pulse Rate [Left Brachial] Respiratory Rate Blood Pressure Blood Pressure [Left Arm] O2 Sat by Pulse Oximetry 94 L 94 L Oxygen Delivery Method Room Air Oxygen Flow Rate 06/17/23 16:00 06/17/23 20:00 06/17/23 19:00 Temperature 98.3 F 98.0 F Pulse Rate Pulse Rate [Left Brachial] 83 83 Respiratory Rate 16 20 Blood Pressure Blood Pressure [Left Arm] 139/64 129/59 O2 Sat by Pulse Oximetry 95 96 Oxygen Delivery Method Room Air Room Air Nasal Cannula Oxygen Flow Rate 2 06/17/23 23:52 06/18/23 03:59 06/18/23 08:00 Temperature 97.6 F 97.8 F 97.5 F L Pulse Rate Pulse Rate [Left Brachial] 108 H 100 H 82 Respiratory Rate 20 18 20 Blood Pressure Blood Pressure [Left Arm] 122/56 133/62 143/68 O2 Sat by Pulse Oximetry 95 95 97 Oxygen Delivery Method Room Air Room Air Oxygen Flow Rate 06/18/23 07:00 06/18/23 12:00 06/18/23 16:00 Temperature 98.9 F 98.6 F Pulse Rate Pulse Rate [Left Brachial] 78 78 Respiratory Rate 20 20 Blood Pressure Blood Pressure [Left Arm] 161/73 128/60 O2 Sat by Pulse Oximetry 96 97 Oxygen Delivery Method Nasal Cannula Oxygen Flow Rate 2 06/18/23 19:00 06/18/23 20:00 06/19/23 00:00 Temperature 97.9 F 98.8 F Pulse Rate Pulse Rate [Left Brachial] 93 H 81 Respiratory Rate 20 20 Blood Pressure Blood Pressure [Left Arm] 145/65 154/68 O2 Sat by Pulse Oximetry 97 95 Oxygen Delivery Method Room Air Oxygen Flow Rate 06/19/23 04:00 06/19/23 07:00 06/19/23 07:50 Temperature 97.9 F 98.0 F Pulse Rate Pulse Rate [Left Brachial] 103 H 96 H Respiratory Rate 20 20 Blood Pressure Blood Pressure [Left Arm] 138/86 123/65 O2 Sat by Pulse Oximetry 95 94 L Oxygen Delivery Method Room Air Oxygen Flow Rate 06/19/23 11:55 06/19/23 15:52 06/19/23 19:00 Temperature 98.3 F 98.7 F Pulse Rate Pulse Rate [Left Brachial] 91 H 114 H Respiratory Rate 20 20 Blood Pressure Blood Pressure [Left Arm] 181/85 144/80 O2 Sat by Pulse Oximetry 93 L 95 Oxygen Delivery Method Room Air Oxygen Flow Rate 06/19/23 20:00 06/20/23 00:00 06/20/23 04:00 Temperature 97.9 F 97.9 F 98 F Pulse Rate Pulse Rate [Left Brachial] 105 H 112 H 105 H Respiratory Rate 18 20 20 Blood Pressure Blood Pressure [Left Arm] 146/69 140/89 146/76 O2 Sat by Pulse Oximetry 95 96 95 Oxygen Delivery Method Room Air Room Air Room Air Oxygen Flow Rate Labs: Laboratory Last Values WBC 10.8 X10^3/uL (3.6-10.0) H 06/20/23 04:59 RBC 4.05 X10^6/uL (3.5-5.4) 06/20/23 04:59 Hgb 12.8 g/dL (12.0-16.0) 06/20/23 04:59 Hct 37.3 % (36.0-47.0) 06/20/23 04:59 MCV 92.0 fL (80.0-100.0) 06/20/23 04:59 MCH 31.7 pg (27.0-34.0) 06/20/23 04:59 MCHC 34.5 g/dL (33.0-35.0) 06/20/23 04:59 RDW 13.7 % (11.6-16.5) 06/20/23 04:59 Plt Count 253 X10^3/uL (150.0-450.0) 06/20/23 04:59 MPV 8.6 fL (7.4-11.0) 06/20/23 04:59 Neut % (Auto) 82.7 % (42.0-75.0) H 06/20/23 04:59 Lymph % (Auto) 6.1 % (21.0-51.0) L 06/20/23 04:59 [place] % (Auto) 11.1 % (0.0-13.0) 06/20/23 04:59 Eos % (Auto) 0.0 % (0.9-2.9) L 06/20/23 04:59 Baso % (Auto) 0.1 % (0.2-1.0) L 06/20/23 04:59 Neut # (Auto) 8.9 x10^3/uL (2.2-4.8) H 06/20/23 04:59 Lymph # (Auto) 0.7 X10^3/uL (1.3-2.9) L 06/20/23 04:59 [place] # (Auto) 1.2 x10^3/uL (0.3-0.8) H 06/20/23 04:59 Eos # (Auto) 0.0 x10^3/uL (0.0-0.2) 06/20/23 04:59 Baso # (Auto) 0.0 X10^3/uL (0.0-0.1) 06/20/23 04:59 Absolute Nucleated RBC 0.0 /100WBC 06/20/23 04:59 PT 14.6 SECONDS (11.8-14.3) 06/17/23 07:37 INR Target Range - 06/17/23 07:37 INR 1.16 (0.8-1.3) 06/17/23 07:37 APTT 32.6 SECONDS (22.9-36.5) 06/17/23 07:37 PTT Comment - 06/17/23 07:37 D-Dimer 1.25 ug/ml (0.0-0.57) H 06/17/23 07:37 Sodium 138 mmol/L (136-145) 06/20/23 04:59 Corrected Sodium 138 mmol/L (136-145) 06/20/23 04:59 Potassium 3.7 mmol/L (3.5-5.1) 06/20/23 04:59 Chloride 105 mmol/L (98-107) 06/20/23 04:59 Carbon Dioxide 27.7 mmol/L (21-32) 06/20/23 04:59 BUN 11 mg/dL (7-18) 06/20/23 04:59 Creatinine 0.72 mg/dL (0.55-1.02) 06/20/23 04:59 Est GFR (MDRD) Af Amer > 60 (>60) 06/20/23 04:59 Est GFR (MDRD) Non-Af > 60 (>60) 06/20/23 04:59 Glucose 114 mg/dL (65-99) H 06/20/23 04:59 Calcium 8.0 mg/dL (8.5-10.1) L 06/20/23 04:59 Corrected Calcium 9.0 mg/dL (8.5-10.1) 06/20/23 04:59 Magnesium 2.0 mg/dL (2.0-2.9) 06/20/23 04:59 Total Bilirubin 0.30 mg/dL (0.2-1.0) 06/20/23 04:59 AST 23 Units/L (15-37) 06/20/23 04:59 ALT 30 Units/L (12-78) 06/20/23 04:59 Alkaline Phosphatase 85 Units/L (46-116) 06/20/23 04:59 Creatine Kinase 64 Units/L (26-192) 06/17/23 07:37 Troponin I High Sens 9.0 ng/L (4.0-60.0) 06/17/23 19:55 Total Protein 5.4 g/dL (6.4-8.2) L 06/20/23 04:59 Albumin 2.7 g/dL (3.4-5.0) L 06/20/23 04:59 Globulin 2.7 g/dL (2.5-4.5) 06/20/23 04:59 Albumin/Globulin Ratio 1.0 Ratio (1.1-2.1) L 06/20/23 04:59 Amylase 23 Units/L (25-115) L 06/17/23 07:37 Specimen Type Clean catch urine 06/17/23 08:25 Urine Color Straw (YELLOW) 06/17/23 08:25 Urine Appearance Clear (CLEAR) 06/17/23 08:25 Urine pH 7.0 (5.0 - 8.0) 06/17/23 08:25 Ur Specific [place] 1.015 (1.000-1.030) 06/17/23 08:25 Urine Protein Negative (NEGATIVE) 06/17/23 08:25 Urine Glucose (UA) Negative (NEGATIVE) 06/17/23 08:25 Urine Ketones 1+ (NEGATIVE) 06/17/23 08:25 Urine Blood Negative (NEGATIVE) 06/17/23 08:25 Urine Nitrite Negative (NEGATIVE) 06/17/23 08:25 Urine Bilirubin Negative (NEGATIVE) 06/17/23 08:25 Urine Urobilinogen Normal (NORMAL) 06/17/23 08:25 Ur Leukocyte Esterase Negative (NEGATIVE) 06/17/23 08:25 Reason For Visit: COVID +, WEAKNESS Discharge Date Discharge Date: 06/20/23 Discharge Diagnosis All Active Problems (Updated 06/19/23 @ 21:00 by Rocio Turcios) COVID-19 (Acute) Pneumonia due to COVID-19 virus (Acute) Dehydration (Acute) Hypertension (Chronic) Hypoalbuminemia (Acute) Closed fracture of left elbow (Acute) Nondisplaced transcondylar fracture of humerus (Acute) Atrial fibrillation with rapid ventricular response (Acute) Chronic kidney disease (Chronic) Hyperglycemia (Acute) History of skin cancer (Chronic) Arthritis (Chronic) History of atrial fibrillation (Chronic) Plan of Treatment: Continue with present treatment and follow up plan. Pt is to keep follow up appointment as instructed and take medications as ordered. Discharge Medications Discharge Medications: procaine Allergy (Verified 06/17/23 07:29) tetracycline Allergy (Verified 06/17/23 09:06) CONTINUE taking the following medications apixaban 5 mg tablet (Eliquis) 2.5 mg PO BID 06/17/23 [History] diltiazem HCl 240 mg capsule,extended release 24 hr (Cartia XT) 240 mg PO QDAY 06/17/23 [History] fluticasone propionate 50 mcg/actuation nasal spray,suspension 1 spray intranasal BID PRN 06/17/23 [History] meloxicam 15 mg tablet 15 mg PO QDAY 06/17/23 [History] promethazine-DM 6.25 mg-15 mg/5 mL oral syrup 5 ml PO Q4-6H PRN 06/17/23 [History] New Prescriptions levofloxacin 500 mg tablet 500 mg PO DAILY 4 days #4 tabs 06/20/23 [Rx] Discharge Disposition Discharge Disposition: Home Discharge Condition: Stable Discharge Plan Discharge Plan Hospital Course: Patient is a 87-year-old female with a past medical history atrial fibrillation and arthritis admitted for COVID-19 pneumonia and dehydration. Her hospital/treatment course included: IV fluids normal saline, and IV Solu-Medrol 40 mg daily, antitussive medication, incentive spirometry, IV Levaquin. Sputum culture positive for Klebsiella pneu. that is susceptible to levaquin. CT abdomen and pelvis was obtained that revealed: Indeterminate pancreatic tail mass may represent primary carcinoma of the pancreas or sequela of prior pancreatitis. No evidence of metastatic disease or other acute abdominopelvic findings. CA 199 pending to be followed outpatient. Pt will be referred to general surgery outpatient for further evaluation of pancreatic mass. Pt responded well to treatment and symptoms significantly improved. Pt discharged in stable condition. Rx levaquin x 4 days. Pt instructed to follow up with pcp and general surgery-Dr Hernandez in 1 week. Patient Disposition: 01 HOME, SELF-CARE Condition: Stable Health Concerns: Post Hospitalization: new medications and changes needed to prevent readmission or further decline. Pt educated and given instructions on all concerns. Plan of Treatment: Continue with present treatment and follow up plan. Pt is to keep follow up appointment as instructed and take medications as ordered. Prescriptions: Continued promethazine-DM 6.25-15 mg/5 mL syrup 5 ml PO Q4-6H PRN diltiazem HCl [Cartia XT] 240 mg capsule,extended release 24hr 240 mg PO QDAY meloxicam 15 mg tablet 15 mg PO QDAY fluticasone propionate 50 mcg/actuation spray,suspension 1 spray INTRANASAL BID PRN Eliquis 5 mg tablet 2.5 mg PO BID Changed levofloxacin 500 mg tablet 500 mg PO DAILY 4 Days Qty: 4 0RF Discontinued methylprednisolone 4 mg tablets,dose pack 12 mg PO QDAY Follow ups/Referrals Follow ups/Referrals: PAZ RASMUSSEN [STAFF PHYSICIAN] - 1 WEEK MARILIN ALMARAZ [Primary Care Provider] - 3 days Instructions Instructions: COVID-19, Infection Prevention in the Home, Community-Acquired Pneumonia, Adult, [id number] Stand Alone Forms: Excuse From Work or School, Post Hospital Follow Up Care
[2023-06-20] MEDS: MOBIC TAB 15 MG PO SCH (08:42)
[2023-06-20] MEDS: PEPCID TAB 20 MG PO SCH (08:43)
[2023-06-20] MEDS: ELIQUIS PO SCH (08:43)
[2023-06-20] MEDS: CARDIZEM CD 120 MG 24-HR PO SCH (08:43)
[2023-06-20] MEDS: LEVAQUIN PREMIX IV 500 MG 500 MG/100 ML BAG IV SCH (08:43)
[2023-06-20] MEDS ORDERED: K-DUR TAB 20 MEQ PO SCH (09:00)
[2023-06-20 09:34] VITALS: TEMP 97.7
[2023-06-20 12:01] VITALS: BP 125/71; PULSE 102; RESP 20; O2SAT 96
--- NOTE | 2023-06-20 13:18 | RAD ---
HISTORYNo dominant alveolar radiopacity. HX: A-FIB, HIATAL HERNIA SX: HYSTERECTOMYSTUDYCHEST, 1 [id number]/17/2023FINDINGSTrachea is midline. 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 There is mild chronic changes at the bases. No pleural effusions or pneumothorax. No dominant alveolar radiopacities. Osseus structures are unremarkableIMPRESSIONNo acute cardiopulmonary findings .Electronically signed by: Pooja Riggs (Jun 20, 2023 13:17:27)
== END 2023-06-20 13:00 | disposition home health service (06) | DRG 177 ==
LOC: U 07:14 → ER 07:14 → U 10:27 → MED/SURG 12:09
PROVIDERS: ADMIT Family Medicine; ATTEND Family Medicine
DX: R53.1 Weakness; Z79.01 Long term (current) use of anticoagulants; R97.0 Elevated carcinoembryonic antigen [CEA]; B96.1 Klebsiella pneumoniae [K. pneumoniae] as the cause of diseases classified elsewhere; U07.1 COVID-19; E86.0 Dehydration; Z66 Do not resuscitate; I48.20 Chronic atrial fibrillation, unspecified; K86.89 Other specified diseases of pancreas; J12.82 Pneumonia due to coronavirus disease 2019

== ENCOUNTER 2023-11-07 13:40 | Inpatient (IN) ==
[2023-11-07] MEDS ORDERED: CONSULT PHARMACY - POTASSIUM & MAGNESIUM XX SCH (14:04)
[2023-11-07] MEDS: NS 1,000 ML IV 1,000 ML IV SCH (14:52)
[2023-11-07] MEDS: ZOSYN VIAL 3.375 GRAMS 3.375 G in NS 100 ML IV 100 ML IV SCH (14:52)
[2023-11-07] MEDS ORDERED: NS 1,000 ML IV 1,000 ML IV SCH (15:00)
[2023-11-07 15:02] LABS: BASOPHILS # (AUTO) 0.1 X10^3/uL (0.0-0.1); BASOPHILS % (AUTO) 0.8 % (0.2-1.0); EOSINOPHILS # (AUTO) 0.2 x10^3/uL (0.0-0.2); EOSINOPHILS % (AUTO) 1.5 % (0.9-2.9); HEMATOCRIT 41.4 % (36.0-47.0); HEMOGLOBIN 13.7 g/dL (12.0-16.0); LYMPHOCYTES # (AUTO) 0.9 X10^3/uL (1.3-2.9); LYMPHOCYTES % (AUTO) 7.3 % (21.0-51.0); MEAN CORPUSCULAR HEMOGLOBIN 30.9 pg (27.0-34.0); MEAN CORPUSCULAR HGB CONC 33.1 g/dL (33.0-35.0); MEAN CORPUSCULAR VOLUME 93.3 fL (80.0-100.0); MEAN PLATELET VOLUME 10.5 fL (7.4-11.0); MONOCYTES # (AUTO) 1.7 x10^3/uL (0.3-0.8); NEUTROPHILS # (AUTO) 9.2 x10^3/uL (2.2-4.8); NEUTROPHILS % (AUTO) 76.4 % (42.0-75.0); PLATELET COUNT 134 X10^3/uL (150.0-450.0); RED BLOOD COUNT 4.44 X10^6/uL (3.5-5.4); RED CELL DISTRIBUTION WIDTH 13.9 % (11.6-16.5); WHITE BLOOD COUNT 12.1 X10^3/uL (3.6-10.0)
[2023-11-07 15:04] LABS: ERYTHROCYTE SEDIMENTATION RATE 2 MM/HOUR (0-20)
[2023-11-07] MEDS: MORPHINE SULFATE INJ 4 MG IVP PRN (15:04)
[2023-11-07 15:13] LABS: ALANINE AMINOTRANSFERASE 31 Units/L (12-78); ALBUMIN 3.1 g/dL (3.4-5.0); ALKALINE PHOSPHATASE 177 Units/L (46-116); ASPARTATE AMINO TRANSFERASE 49 Units/L (15-37); BLOOD UREA NITROGEN 11 mg/dL (7-18); CALCIUM 8.6 mg/dL (8.5-10.1); CARBON DIOXIDE 26.2 mmol/L (21-32); CHLORIDE 100 mmol/L (98-107); COR CA(FOR HYPOALB) 9.3 mg/dL (8.5-10.1); COR NA(FOR HYPERGLY) 135 mmol/L (136-145); GLUCOSE 123 mg/dL (65-99); MAGNESIUM 1.9 mg/dL (2.0-2.9); POTASSIUM 3.8 mmol/L (3.5-5.1); SODIUM 134 mmol/L (136-145); eGFR NON BLACK RACES > 60 (>60)
[2023-11-07] MEDS: ZOFRAN INJ 4 MG VIAL IVP PRN (15:22)
[2023-11-07] MEDS: NS 1,000 ML IV 1,000 ML with MAGNESIUM SULFATE 50% INJ VIAL 1 G IV SCH (15:49)
[2023-11-07] MEDS ORDERED: OMNIPAQUE 350 mg/mL 100 mL BTL 100 ML ONE (15:51)
--- NOTE | 2023-11-07 20:58 | DR.H&P ---
H&P History & Physical for Day of: H&P Date: 11/07/23 Chief Complaint Chief Complaint: Lower abdominal pain with nausea Allergies Allergies Allergy/AdvReac Type Severity Reaction Status Date / Time procaine Allergy Verified 06/17/23 07:29 tetracycline Allergy Verified 06/17/23 09:06 History of Present Illness History of Present Illness: This is a pleasant 88-year-old white female well- known to me. I saw her a week ago for bilateral lower abdominal pain. I o rdered routine labs on her and saw that she had a slightly elevated white blood cell count and neutrophil count. I started her on oral ciprofloxacin and Flagyl she was unable to take the ciprofloxacin. Afterwards, she changed it to Augmentin, and she has been taking that, but unfortunately, she is not feeling any better today. I decided to go ahead and direct admit her today and start a workup for her lower abdominal pain. I will order a CT scan of her abdomen and pelvis with IV and p.o. contrast. I also repeated her labs I see that her white blood cell count is still elevated and is 12,100 today. Her BUN and creatinine are normal but her platelet count is slightly low at 134,000. I went ahead and put in a general surgery consult with Dr. Correa and started her empirically on IV Zosyn. I will also check a digoxin level since she takes digoxin for A- fib and I will also check a lactic acid level to make sure that she is not getting septic. I will give her IV morphine for pain and IV Zofran for nausea. I will continue her on oral cardiac Steege for rate control for atrial fi brillation. I do see that in the previous CT from June 2023 and it looks like she has a mass in the tail of her pancreas. I will go ahead and order a CA 199 as well today. Repeat routine labs in the morning. Past Medical History Past Medical History: Arthritis Additional Medical History: Atrial Fibrillation, Bronchitis, Pneumonia, Back Pain, Skin Cancer Past Surgical History Surgical History: Hysterectomy, Ortho Surgery and Tonsillectomy Additional Surgical History: Right Hip Replacement Family History Family Medical History: Diabetes Mellitus and Cancer Social History Does patient currently use any type of tobacco product: No Have you used tobacco products in the last 12 months: No Type of Tobacco Use: None Does any household member use tobacco: No Alcohol Use: None Drug Use: None Medications Home Medications: Home Medications Medication Instructions Recorded Confirmed Type apixaban 5 mg tablet (Eliquis) 2.5 mg PO BID 06/17/23 11/07/23 History diltiazem HCl 240 mg 240 mg PO QDAY 06/17/23 11/07/23 History capsule,extended release 24 hr (Cartia XT) fluticasone propionate 50 1 spray intranasal BID PRN 06/17/23 11/07/23 History mcg/actuation nasal spray,suspension Labs 11/07/23 14:33 11/07/23 14:33 Labs: Laboratory WBC 12.1 X10^3/uL (3.6-10.0) H 11/07/23 14:33 RBC 4.44 X10^6/uL (3.5-5.4) 11/07/23 14:33 Hgb 13.7 g/dL (12.0-16.0) 11/07/23 14:33 Hct 41.4 % (36.0-47.0) 11/07/23 14:33 MCV 93.3 fL (80.0-100.0) 11/07/23 14:33 MCH 30.9 pg (27.0-34.0) 11/07/23 14:33 MCHC 33.1 g/dL (33.0-35.0) 11/07/23 14:33 RDW 13.9 % (11.6-16.5) 11/07/23 14:33 Plt Count 134 X10^3/uL (150.0-450.0) L 11/07/23 14:33 MPV 10.5 fL (7.4-11.0) 11/07/23 14:33 Neut % (Auto) 76.4 % (42.0-75.0) H 11/07/23 14:33 Lymph % (Auto) 7.3 % (21.0-51.0) L 11/07/23 14:33 [place] % (Auto) 14.0 % (0.0-13.0) H 11/07/23 14:33 Eos % (Auto) 1.5 % (0.9-2.9) 11/07/23 14:33 Baso % (Auto) 0.8 % (0.2-1.0) 11/07/23 14:33 Neut # (Auto) 9.2 x10^3/uL (2.2-4.8) H 11/07/23 14:33 Lymph # (Auto) 0.9 X10^3/uL (1.3-2.9) L 11/07/23 14:33 [place] # (Auto) 1.7 x10^3/uL (0.3-0.8) H 11/07/23 14:33 Eos # (Auto) 0.2 x10^3/uL (0.0-0.2) 11/07/23 14:33 Baso # (Auto) 0.1 X10^3/uL (0.0-0.1) 11/07/23 14:33 Absolute Nucleated RBC 0.1 /100WBC 11/07/23 14:33 ESR 2 MM/HOUR (0-20) 11/07/23 14:33 Sodium 134 mmol/L (136-145) L 11/07/23 14:33 Corrected Sodium 135 mmol/L (136-145) L 11/07/23 14:33 Potassium 3.8 mmol/L (3.5-5.1) 11/07/23 14:33 Chloride 100 mmol/L (98-107) 11/07/23 14:33 Carbon Dioxide 26.2 mmol/L (21-32) 11/07/23 14:33 BUN 11 mg/dL (7-18) 11/07/23 14:33 Creatinine 0.80 mg/dL (0.55-1.02) 11/07/23 14:33 Est GFR (MDRD) Af Amer > 60 (>60) 11/07/23 14:33 Est GFR (MDRD) Non-Af > 60 (>60) 11/07/23 14:33 Glucose 123 mg/dL (65-99) H 11/07/23 14:33 Lactic Acid 1.3 mmol/L (0.4-2.0) 11/07/23 14:33 Calcium 8.6 mg/dL (8.5-10.1) 11/07/23 14:33 Corrected Calcium 9.3 mg/dL (8.5-10.1) 11/07/23 14:33 Magnesium 1.9 mg/dL (2.0-2.9) L 11/07/23 14:33 Total Bilirubin 0.80 mg/dL (0.2-1.0) 11/07/23 14:33 AST 49 Units/L (15-37) H 11/07/23 14:33 ALT 31 Units/L (12-78) 11/07/23 14:33 Alkaline Phosphatase 177 Units/L (46-116) H 11/07/23 14:33 C-Reactive Protein 42.20 mg/L (0-3.0) H 11/07/23 14:33 Total Protein 6.0 g/dL (6.4-8.2) L 11/07/23 14:33 Albumin 3.1 g/dL (3.4-5.0) L 11/07/23 14:33 Globulin 2.9 g/dL (2.5-4.5) 11/07/23 14:33 Albumin/Globulin Ratio 1.1 Ratio (1.1-2.1) 11/07/23 14:33 Review of Systems Constitutional: Weakness and Malaise Eyes: No Symptoms Reported ENT: No Symptoms Reported Respiratory: SOB with Excertion Cardiovascular: Orthopnea Gastrointestinal: Nausea and Abdominal Pain Genitourinary: No Symptoms Reported Musculoskeletal: No Symptoms Reported Skin: No Symptoms Reported Neurological: Weakness Physical Exam Vital Signs: Vital Signs Temperature 97.9 F Temperature 97.0 F Pulse Rate [Right Brachial] 102 Pulse Rate [Right Brachial] 98 Respiratory Rate 20 Respiratory Rate 18 Respiratory Rate 18 Respiratory Rate 18 Blood Pressure [Right Arm] 139/78 Blood Pressure [Right Arm] 167/72 Blood Pressure 151/41 O2 Sat by Pulse Oximetry 90 O2 Sat by Pulse Oximetry 94 Oriented: Normal, Time, Person and Place Eyes: Normal Ear: Normal Nose: Normal Throat: Normal Respiratory: Clear Throughout Cardiovascular: Normal Auscultation: Bowel Sounds: Normal Palpation: Normal Tenderness: RLQ, LLQ and Suprapubic Skin: Normal Musculoskeletal: Normal Psychiatric: Depression Mood Description: Apathetic, Depressed and Sad Affect: Flat Speech Pattern: Clear and Appropriate Assessment/Plan (1) Abdominal pain: Qualifiers: Abdominal location: generalized Qualified Code(s): R10.84 - Generalized abdominal pain Status: Acute Plan: Check CT abdomen and pelvis with IV and p.o. contrast. Consult general surgery. IV morphine for pain control. Make patient n.p.o. for now. (2) Generalized weakness: Status: Acute (3) Leukocytosis: Status: Acute Plan: Empirically cover the patient with Zosyn. (4) Nausea: Status: Acute Plan: IV or p.o. Zofran. (5) Hyperglycemia: Status: Acute Plan: Check hemoglobin A1c. Review H&P Reviewed: Yes Patient was examined?: Yes
[2023-11-07 23:54] LABS: BILIRUBIN,URINE NEGATIVE (NEGATIVE); BLOOD/HEMOGLOBIN,URINE 3+ (NEGATIVE); GLUCOSE, URINE NEGATIVE (NEGATIVE); KETONES,URINE NEGATIVE (NEGATIVE); LEUKOCYTE ESTERASE ,URINE NEGATIVE (NEGATIVE); NITRITES,URINE NEGATIVE (NEGATIVE); PROTEIN,URINE 2+ (NEGATIVE); UROBILINOGEN,URINE NORMAL (NORMAL)
[2023-11-08 00:02] LABS: APPEARANCE,URINE CLEAR (CLEAR); BACTERIA,URINE TRACE /HPF (NEGATIVE); COLOR,URINE YELLOW (YELLOW); SQUAMOUS EPITHELIAL CELL,UR FEW /HPF (NEGATIVE)
--- NOTE | 2023-11-08 05:14 | CT ---
EXAM:CT ABDOMEN AND PELVIS WITH CONTRASTHISTORY:abd pain, N/V, anorexia; ortho, tonsil, hystCOMPARISON:CT abdomen June 18, 2023.TECHNIQUE:Axial CT images were obtained through the abdomen and pelvis after the intravenous administration of contrast. Coronal reformatted images were included.Informed written consent was obtained prior to contrast administration.All CT scans at this facility use dose modulation, iterative reconstruction, and/or weight based dosing when appropriate to reduce radiation dose to as low as reasonably achievable.FINDINGS:LOWER THORAX: Large pleural effusions have developed in the interim since prior study.ABDOMEN:LIVER: Liver demonstrates multiple low-density lesions throughout the liver parenchyma which are new since prior study. Example includes an inferior right hepatic lobe mass measuring 3.3 x 2.8 cm, large left lateral segment left hepatic lobe mass measuring 4.3 x 3.6 cm, and segment 8 lesion near the dome measuring 2.7 x 2.2 cm among many others.GALLBLADDER: Within normal limits.SPLEEN: Within normal limits.PANCREAS: Mass in the pancreatic tail appears infiltrative measuring 5.5 x 4.0 cm, increased in size since prior study, previously measuring 3.9 x 2.9 cm.KIDNEYS: Within normal limits.ADRENAL GLANDS: Within normal limits.GI TRACT: Sigmoid colonic diverticulosisLYMPH NODES: No distinct lymphadenopathyVESSELS: Diffuse athero sclerotic diseasePERITONEUM / RETROPERITONEUM: No free gas.PELVIS:BLADDER: Within normal limits.GENITALS: Uterus is absentBONES: Multilevel degenerative changes in the lumbar spine with scoliosis.IMPRESSION:Significant interval enlargement of pancreatic tail mass since prior study of June 18, 2023. Findings favor pancreatic adenocarcinoma. Interval development of diffuse liver metastatic lesions.Moderate bilateral pleural effusions which are new since prior study with basilar compressive atelectasis.THIS IS AN ELECTRONICALLY VERIFIED FINAL REPORT11/08/2023 5:11 AM - Electronically signed by Barrington Mckeon MD
[2023-11-08 06:19] LABS: BASOPHILS % (AUTO) 0.4 % (0.2-1.0); EOSINOPHILS # (AUTO) 0.2 x10^3/uL (0.0-0.2); EOSINOPHILS % (AUTO) 2.3 % (0.9-2.9); HEMATOCRIT 39.1 % (36.0-47.0); HEMOGLOBIN 13.1 g/dL (12.0-16.0); LYMPHOCYTES # (AUTO) 0.9 X10^3/uL (1.3-2.9); LYMPHOCYTES % (AUTO) 9.4 % (21.0-51.0); MEAN CORPUSCULAR HEMOGLOBIN 31.4 pg (27.0-34.0); MEAN CORPUSCULAR HGB CONC 33.5 g/dL (33.0-35.0); MEAN CORPUSCULAR VOLUME 93.7 fL (80.0-100.0); MEAN PLATELET VOLUME 10.5 fL (7.4-11.0); MONOCYTES # (AUTO) 1.4 x10^3/uL (0.3-0.8); MONOCYTES % (AUTO) 14.8 % (0.0-13.0); NEUTROPHILS # (AUTO) 7.2 x10^3/uL (2.2-4.8); NEUTROPHILS % (AUTO) 73.1 % (42.0-75.0); PLATELET COUNT 112 X10^3/uL (150.0-450.0); RED BLOOD COUNT 4.17 X10^6/uL (3.5-5.4); RED CELL DISTRIBUTION WIDTH 13.8 % (11.6-16.5); WHITE BLOOD COUNT 9.8 X10^3/uL (3.6-10.0)
[2023-11-08 06:39] LABS: ALANINE AMINOTRANSFERASE 27 Units/L (12-78); ALBUMIN 2.7 g/dL (3.4-5.0); ALKALINE PHOSPHATASE 155 Units/L (46-116); ASPARTATE AMINO TRANSFERASE 47 Units/L (15-37); BLOOD UREA NITROGEN 9 mg/dL (7-18); CALCIUM 8.4 mg/dL (8.5-10.1); CARBON DIOXIDE 25.7 mmol/L (21-32); CHLORIDE 103 mmol/L (98-107); COR CA(FOR HYPOALB) 9.4 mg/dL (8.5-10.1); CREATININE 0.75 mg/dL (0.55-1.02); GLUCOSE 92 mg/dL (65-99); POTASSIUM 4.2 mmol/L (3.5-5.1); SODIUM 137 mmol/L (136-145); TOTAL PROTEIN 5.4 g/dL (6.4-8.2); eGFR NON BLACK RACES > 60 (>60)
[2023-11-08] MEDS: CARDIZEM CD 120 MG 24-HR PO SCH (08:38)
[2023-11-08] MEDS: LANOXIN or DIGITEK PO SCH (08:39)
--- NOTE | 2023-11-08 10:42 | RAD ---
EXAM: KUB HISTORY: Pain COMPARISON: None FINDINGS: Mild gaseous distention of small and large bowel. Dilute contrast material is noted in the distal b owel and renal collecting systems. There is no definite mass, calcification or ascites. Significant lumbar levoscoliosis is present. IMPRESSION: Nonobstructive intestinal distention. No acute findings. THIS IS AN ELECTRONICALLY VERIFIED FINAL REPORT 11/08/2023 10:39 AM - Electronically signed by Enoc Montero MD
[2023-11-08] MEDS: ELIQUIS PO SCH ×2 (11:49→20:32)
[2023-11-08] MEDS: CATAPRES TAB 0.1 MG PO ONE (12:10)
--- NOTE | 2023-11-08 12:17 | EKG ---
Test Reason : bp 180/75, hr 120 Blood Pressure : */* mmHG Vent. Rate : 102 BPM Atrial Rate : * BPM P-R Int : * ms QRS Dur : 78 ms QT Int : 336 ms P-R-T Axes : * -27 111 degrees QTc Int : 437 ms Atrial fibrillation with rapid ventricular response Septal infarct (cited on or before 21-JUN-2023) Abnormal ECG When compared with ECG of 21-JUN-2023 14:19, Vent. rate has decreased BY 52 BPM QRS axis shifted left Questionable change in initial forces of Septal leads ST less depressed in Inferior leads Nonspecific T wave abnormality now evident in Inferior leads Confirmed by Claudio Avalos MD ([id number]) on 11/09/2023 7:38:58 AM Referred By: Confirmed By: Claudio Avalos MD
--- NOTE | 2023-11-08 20:08 | PCM.PROG ---
Progress Note Progress Note for Day of Date of Exam: 11/08/23 Subjective Subjective: The patient reports that her pain is better, and the pain medicine is tolerable now. I see that the CT scan shows that she has metastatic disease in her liver now. A previous CT scan in June 2023 showed that she had a mass in the pancreatic tail. I discussed her plans with her this morning. She is going to discuss hospice with her son today as she does not feel like she wants chemotherapy at this time. I will reevaluate this with her tomorrow morning during rounds and see what she decides. In the meantime, we will continue IV hydration and pain control with morphine sulfate. Past Medical Family Social History Allergies: Allergies procaine Allergy (Verified 06/17/23 07:29) tetracycline Allergy (Verified 06/17/23 09:06) Review of Systems ROS: No change since H&P Vital Signs and I&O's Vital Signs: Vital Signs Temperature 97.8 F Pulse Rate [Right Brachial] 82 Pulse Rate [Right Brachial] 100 Respiratory Rate 20 Respiratory Rate 20 Blood Pressure [Right Arm] 131/81 Blood Pressure [Right Arm] 151/66 Blood Pressure [Right Arm] 175/60 O2 Sat by Pulse Oximetry 90 O2 Sat by Pulse Oximetry 93 Intake and Output: Intake & Output 11/06/23 11/07/23 11/08/23 11/09/23 11:59 11:59 11:59 11:59 Intake Total 1250 / 1250 1212 / 1212 Balance 1250 / 1250 1212 / 1212 Physical Exam Oriented: Normal, Time, Person and Place Eyes: Normal Ear: Normal Nose: Normal Throat: Normal Respiratory: Normal Cardiovascular: Normal Auscultation: Bowel Sounds: Normal Tenderness: RLQ, LLQ and Suprapubic Skin: Normal Musculoskeletal: Normal Psychiatric: Depression Mood Description: Apathetic, Depressed and Sad Affect: Flat Speech Pattern: Clear and Appropriate Laboratory and Diagnostics 11/08/23 05:25 11/08/23 05:25 Labs: Laboratory WBC 9.8 X10^3/uL (3.6-10.0) 11/08/23 05:25 RBC 4.17 X10^6/uL (3.5-5.4) 11/08/23 05:25 Hgb 13.1 g/dL (12.0-16.0) 11/08/23 05:25 Hct 39.1 % (36.0-47.0) 11/08/23 05:25 MCV 93.7 fL (80.0-100.0) 11/08/23 05:25 MCH 31.4 pg (27.0-34.0) 11/08/23 05:25 MCHC 33.5 g/dL (33.0-35.0) 11/08/23 05:25 RDW 13.8 % (11.6-16.5) 11/08/23 05:25 Plt Count 112 X10^3/uL (150.0-450.0) L 11/08/23 05:25 MPV 10.5 fL (7.4-11.0) 11/08/23 05:25 Neut % (Auto) 73.1 % (42.0-75.0) 11/08/23 05:25 Lymph % (Auto) 9.4 % (21.0-51.0) L 11/08/23 05:25 [place] % (Auto) 14.8 % (0.0-13.0) H 11/08/23 05:25 Eos % (Auto) 2.3 % (0.9-2.9) 11/08/23 05:25 Baso % (Auto) 0.4 % (0.2-1.0) 11/08/23 05:25 Neut # (Auto) 7.2 x10^3/uL (2.2-4.8) H 11/08/23 05:25 Lymph # (Auto) 0.9 X10^3/uL (1.3-2.9) L 11/08/23 05:25 [place] # (Auto) 1.4 x10^3/uL (0.3-0.8) H 11/08/23 05:25 Eos # (Auto) 0.2 x10^3/uL (0.0-0.2) 11/08/23 05:25 Baso # (Auto) 0.0 X10^3/uL (0.0-0.1) 11/08/23 05:25 Absolute Nucleated RBC 0.1 /100WBC 11/08/23 05:25 ESR 2 MM/HOUR (0-20) 11/07/23 14:33 Sodium 137 mmol/L (136-145) 11/08/23 05:25 Corrected Sodium TNP 11/08/23 05:25 Potassium 4.2 mmol/L (3.5-5.1) 11/08/23 05:25 Chloride 103 mmol/L (98-107) 11/08/23 05:25 Carbon Dioxide 25.7 mmol/L (21-32) 11/08/23 05:25 BUN 9 mg/dL (7-18) 11/08/23 05:25 Creatinine 0.75 mg/dL (0.55-1.02) 11/08/23 05:25 Est GFR (MDRD) Af Amer > 60 (>60) 11/08/23 05:25 Est GFR (MDRD) Non-Af > 60 (>60) 11/08/23 05:25 Glucose 92 mg/dL (65-99) 11/08/23 05:25 Lactic Acid 1.3 mmol/L (0.4-2.0) 11/07/23 14:33 Calcium 8.4 mg/dL (8.5-10.1) L 11/08/23 05:25 Corrected Calcium 9.4 mg/dL (8.5-10.1) 11/08/23 05:25 Magnesium 2.0 mg/dL (2.0-2.9) 11/08/23 05:25 Total Bilirubin 0.80 mg/dL (0.2-1.0) 11/08/23 05:25 AST 47 Units/L (15-37) H 11/08/23 05:25 ALT 27 Units/L (12-78) 11/08/23 05:25 Alkaline Phosphatase 155 Units/L (46-116) H 11/08/23 05:25 C-Reactive Protein 42.20 mg/L (0-3.0) H 11/07/23 14:33 Total Protein 5.4 g/dL (6.4-8.2) L 11/08/23 05:25 Albumin 2.7 g/dL (3.4-5.0) L 11/08/23 05:25 Globulin 2.7 g/dL (2.5-4.5) 11/08/23 05:25 Albumin/Globulin Ratio 1.0 Ratio (1.1-2.1) L 11/08/23 05:25 Specimen Type Clean catch urine 11/07/23 23:30 Urine Color Yellow (YELLOW) 11/07/23: Urine Appearance Clear (CLEAR) 11/07/23: Urine pH 5.0 (5.0 - 8.0) 11/07/23 23:30 Ur Specific [place] 1.010 (1.000-1.030) 11/07/23 23: Urine Protein 2+ (NEGATIVE) 11/07/23: Urine Glucose (UA) Negative (NEGATIVE) 11/07/23: Urine Ketones Negative (NEGATIVE) 11/07/23: Urine Blood 3+ (NEGATIVE) 11/07/23: Urine Nitrite Negative (NEGATIVE) 11/07/23: Urine Bilirubin Negative (NEGATIVE) 11/07/23: Urine Urobilinogen Normal (NORMAL) 11/07/23: Ur Leukocyte Esterase Negative (NEGATIVE) 11/07/23: Urine RBC 3-5 /HPF (0-3) A 11/07/23: Urine WBC 0-2 /HPF (0-5) 11/07/23 23:30 Ur Squamous Epith Cells Few /HPF (NEGATIVE) 11/07/23: Urine Bacteria Trace /HPF (NEGATIVE) 11/07/23: Ur Culture Indicated? No/not indicated 11/07/23: Digoxin < 0.20 ng/mL (0.9-2) L 11/08/23 05:25 Radiology Reviewed: Yes Plan (1) Cancer, metastatic to liver: Status: Acute Plan: The patient is going to discuss hospice with her son and family today. We will follow-up with her during morning rounds to see what she has decided. It looks like the patient likely has pancreatic cancer with metastatic disease to her liver. In the meantime we will continue IV hydration and pain control with morphine sulfate. We will plan on transitioning over to oral pain medication to see if this will control her pain and symptoms. (2) Pancreatic mass: Status: Acute (3) Abdominal pain: Status: Acute Qualifiers: Abdominal location: generalized Qualified Code(s): R10.84 - Generalized abdominal pain Plan: Check CT abdomen and pelvis with IV and p.o. contrast. Consult general surgery. IV morphine for pain control. Make patient n.p.o. for now. (4) Generalized weakness: Status: Acute (5) Leukocytosis: Status: Acute Plan: Empirically cover the patient with Zosyn. (6) Nausea: Status: Acute Plan: IV or p.o. Zofran. (7) Hyperglycemia: Status: Acute Plan: Check hemoglobin A1c.
[2023-11-09] MEDS: MILK OF MAGNESIA PO PRN (05:11)
[2023-11-09 06:06] LABS: BASOPHILS # (AUTO) 0.1 X10^3/uL (0.0-0.1); BASOPHILS % (AUTO) 1.1 % (0.2-1.0); EOSINOPHILS # (AUTO) 0.3 x10^3/uL (0.0-0.2); EOSINOPHILS % (AUTO) 2.6 % (0.9-2.9); HEMATOCRIT 40.3 % (36.0-47.0); HEMOGLOBIN 13.4 g/dL (12.0-16.0); LYMPHOCYTES # (AUTO) 0.6 X10^3/uL (1.3-2.9); LYMPHOCYTES % (AUTO) 5.2 % (21.0-51.0); MEAN CORPUSCULAR HGB CONC 33.1 g/dL (33.0-35.0); MEAN CORPUSCULAR VOLUME 93.8 fL (80.0-100.0); MEAN PLATELET VOLUME 10.8 fL (7.4-11.0); MONOCYTES # (AUTO) 1.3 x10^3/uL (0.3-0.8); MONOCYTES % (AUTO) 11.8 % (0.0-13.0); NEUTROPHILS # (AUTO) 8.6 x10^3/uL (2.2-4.8); NEUTROPHILS % (AUTO) 79.3 % (42.0-75.0); PLATELET COUNT 117 X10^3/uL (150.0-450.0); WHITE BLOOD COUNT 10.8 X10^3/uL (3.6-10.0)
[2023-11-09 06:19] LABS: ALANINE AMINOTRANSFERASE 26 Units/L (12-78); ALBUMIN 2.6 g/dL (3.4-5.0); ALKALINE PHOSPHATASE 156 Units/L (46-116); ASPARTATE AMINO TRANSFERASE 49 Units/L (15-37); BLOOD UREA NITROGEN 9 mg/dL (7-18); CARBON DIOXIDE 24.9 mmol/L (21-32); CHLORIDE 102 mmol/L (98-107); COR CA(FOR HYPOALB) 9.1 mg/dL (8.5-10.1); CREATININE 0.77 mg/dL (0.55-1.02); GLUCOSE 97 mg/dL (65-99); MAGNESIUM 2.1 mg/dL (2.0-2.9); SODIUM 136 mmol/L (136-145); TOTAL PROTEIN 5.3 g/dL (6.4-8.2); eGFR NON BLACK RACES > 60 (>60)
[2023-11-09] MEDS ORDERED: LANOXIN or DIGITEK PO SCH (09:00)
[2023-11-09] MEDS ORDERED: CARDIZEM CD 240 MG 24-HR PO SCH (09:00)
[2023-11-09] MEDS: COLACE CAP 100 MG PO SCH (09:11)
[2023-11-09] MEDS: NORCO 7.5/325 MG TAB PO PRN (17:10)
[2023-11-10 05:44] LABS: BASOPHILS # (AUTO) 0.1 X10^3/uL (0.0-0.1); BASOPHILS % (AUTO) 0.9 % (0.2-1.0); EOSINOPHILS # (AUTO) 0.4 x10^3/uL (0.0-0.2); EOSINOPHILS % (AUTO) 2.8 % (0.9-2.9); HEMATOCRIT 40.5 % (36.0-47.0); HEMOGLOBIN 13.4 g/dL (12.0-16.0); LYMPHOCYTES # (AUTO) 0.7 X10^3/uL (1.3-2.9); LYMPHOCYTES % (AUTO) 5.1 % (21.0-51.0); MEAN CORPUSCULAR HGB CONC 33.1 g/dL (33.0-35.0); MEAN CORPUSCULAR VOLUME 93.5 fL (80.0-100.0); MEAN PLATELET VOLUME 10.2 fL (7.4-11.0); MONOCYTES # (AUTO) 1.5 x10^3/uL (0.3-0.8); MONOCYTES % (AUTO) 10.9 % (0.0-13.0); NEUTROPHILS # (AUTO) 10.9 x10^3/uL (2.2-4.8); NEUTROPHILS % (AUTO) 80.3 % (42.0-75.0); PLATELET COUNT 123 X10^3/uL (150.0-450.0); RED BLOOD COUNT 4.33 X10^6/uL (3.5-5.4); WHITE BLOOD COUNT 13.5 X10^3/uL (3.6-10.0)
[2023-11-10 05:59] LABS: ALANINE AMINOTRANSFERASE 27 Units/L (12-78); ALBUMIN 2.4 g/dL (3.4-5.0); ALKALINE PHOSPHATASE 148 Units/L (46-116); ASPARTATE AMINO TRANSFERASE 63 Units/L (15-37); BLOOD UREA NITROGEN 10 mg/dL (7-18); CARBON DIOXIDE 23.9 mmol/L (21-32); CHLORIDE 100 mmol/L (98-107); COR CA(FOR HYPOALB) 9.3 mg/dL (8.5-10.1); CREATININE 0.69 mg/dL (0.55-1.02); GLUCOSE 97 mg/dL (65-99); SODIUM 132 mmol/L (136-145); TOTAL PROTEIN 5.1 g/dL (6.4-8.2); eGFR NON BLACK RACES > 60 (>60)
--- NOTE | 2023-11-10 08:08 | PCM.PROG ---
Progress Note Progress Note for Day of Date of Exam: 11/09/23 Subjective Subjective: The patient is resting comfortably this morning. She wants me to discuss her prognosis with her 2 sons and I told her I will gladly do that. She has decided to go with hospice but wants to stay another few days until her pain is better controlled. We will start her on oral hydrocodone today states that helps with the pain and if so we will plan to discharge in the next 1 to 2 days. Will plan on consulting [facility]. Past Medical Family Social History Allergies: Allergies procaine Allergy (Verified 06/17/23 07:29) tetracycline Allergy (Verified 06/17/23 09:06) Review of Systems ROS: No change since H&P Vital Signs and I&O's Vital Signs: Vital Signs Temperature 97.3 F Temperature 98.3 F Pulse Rate [Right Brachial] 109 Pulse Rate [Right Brachial] 92 Respiratory Rate 18 Respiratory Rate 18 Blood Pressure [Left Arm] 188/74 Blood Pressure [Left Arm] 177/79 O2 Sat by Pulse Oximetry 93 O2 Sat by Pulse Oximetry 96 Intake and Output: Intake & Output 11/07/23 11/08/23 11/09/23 11/10/23 11:59 11:59 11:59 11:59 Intake Total 1250 / 1250 2386 / 2386 2725 / 2725 Balance 1250 / 1250 2386 / 2386 2725 / 2725 Physical Exam Oriented: Normal, Time, Person and Place Eyes: Normal Ear: Normal Nose: Normal Throat: Normal Respiratory: Normal Cardiovascular: Normal Auscultation: Bowel Sounds: Normal Tenderness: RLQ, LLQ and Suprapubic Skin: Normal Musculoskeletal: Normal Psychiatric: Depression Mood Description: Apathetic, Depressed and Sad Affect: Flat Speech Pattern: Clear and Appropriate Laboratory and Diagnostics 11/10/23 05:17 11/10/23 05:17 Labs: 11/07/23 14:44 Blood Blood Culture - Preliminary 11/07/23 14:33 Blood Blood Culture - Preliminary Laboratory WBC 13.5 X10^3/uL (3.6-10.0) H 11/10/23 05:17 RBC 4.33 X10^6/uL (3.5-5.4) 11/10/23 05:17 Hgb 13.4 g/dL (12.0-16.0) 11/10/23 05:17 Hct 40.5 % (36.0-47.0) 11/10/23 05:17 MCV 93.5 fL (80.0-100.0) 11/10/23 05:17 MCH 31.0 pg (27.0-34.0) 11/10/23 05:17 MCHC 33.1 g/dL (33.0-35.0) 11/10/23 05:17 RDW 14.0 % (11.6-16.5) 11/10/23 05:17 Plt Count 123 X10^3/uL (150.0-450.0) L 11/10/23 05:17 MPV 10.2 fL (7.4-11.0) 11/10/23 05:17 Neut % (Auto) 80.3 % (42.0-75.0) H 11/10/23 05:17 Lymph % (Auto) 5.1 % (21.0-51.0) L 11/10/23 05:17 [place] % (Auto) 10.9 % (0.0-13.0) 11/10/23 05:17 Eos % (Auto) 2.8 % (0.9-2.9) 11/10/23 05:17 Baso % (Auto) 0.9 % (0.2-1.0) 11/10/23 05:17 Neut # (Auto) 10.9 x10^3/uL (2.2-4.8) H 11/10/23 05:17 Lymph # (Auto) 0.7 X10^3/uL (1.3-2.9) L 11/10/23 05:17 [place] # (Auto) 1.5 x10^3/uL (0.3-0.8) H 11/10/23 05:17 Eos # (Auto) 0.4 x10^3/uL (0.0-0.2) H 11/10/23 05:17 Baso # (Auto) 0.1 X10^3/uL (0.0-0.1) 11/10/23 05:17 Absolute Nucleated RBC 0.0 /100WBC 11/10/23 05:17 ESR 2 MM/HOUR (0-20) 11/07/23 14:33 Sodium 132 mmol/L (136-145) L 11/10/23 05:17 Corrected Sodium TNP 11/10/23 05:17 Potassium 4.0 mmol/L (3.5-5.1) 11/10/23 05:17 Chloride 100 mmol/L (98-107) 11/10/23 05:17 Carbon Dioxide 23.9 mmol/L (21-32) 11/10/23 05:17 BUN 10 mg/dL (7-18) 11/10/23 05:17 Creatinine 0.69 mg/dL (0.55-1.02) 11/10/23 05:17 Est GFR (MDRD) Af Amer > 60 (>60) 11/10/23 05:17 Est GFR (MDRD) Non-Af > 60 (>60) 11/10/23 05:17 Glucose 97 mg/dL (65-99) 11/10/23 05:17 Lactic Acid 1.3 mmol/L (0.4-2.0) 11/07/23 14:33 Calcium 8.0 mg/dL (8.5-10.1) L 11/10/23 05:17 Corrected Calcium 9.3 mg/dL (8.5-10.1) 11/10/23 05:17 Magnesium 2.2 mg/dL (2.0-2.9) 11/10/23 05:17 Total Bilirubin 0.90 mg/dL (0.2-1.0) 11/10/23 05:17 AST 63 Units/L (15-37) H 11/10/23 05:17 ALT 27 Units/L (12-78) 11/10/23 05:17 Alkaline Phosphatase 148 Units/L (46-116) H 11/10/23 05:17 C-Reactive Protein 42.20 mg/L (0-3.0) H 11/07/23 14:33 Total Protein 5.1 g/dL (6.4-8.2) L 11/10/23 05:17 Albumin 2.4 g/dL (3.4-5.0) L 11/10/23 05:17 Globulin 2.7 g/dL (2.5-4.5) 11/10/23 05:17 Albumin/Globulin Ratio 0.9 Ratio (1.1-2.1) L 11/10/23 05:17 Specimen Type Clean catch urine 11/07/23 23:30 Urine Color Yellow (YELLOW) 11/07/23 23:30 Urine Appearance Clear (CLEAR) 11/07/23 23: Urine pH 5.0 (5.0 - 8.0) 11/07/23 23:30 Ur Specific [place] 1.010 (1.000-1.030) 11/07/23 23:30 Urine Protein 2+ (NEGATIVE) 11/07/23 23: Urine Glucose (UA) Negative (NEGATIVE) 11/07/23 23: Urine Ketones Negative (NEGATIVE) 11/07/23 23: Urine Blood 3+ (NEGATIVE) 11/07/23 23: Urine Nitrite Negative (NEGATIVE) 11/07/23: Urine Bilirubin Negative (NEGATIVE) 11/07/23 23: Urine Urobilinogen Normal (NORMAL) 11/07/23 23:30 Ur Leukocyte Esterase Negative (NEGATIVE) 11/07/23 23:30 Urine RBC 3-5 /HPF (0-3) A 11/07/23 23: Urine WBC 0-2 /HPF (0-5) 11/07/23 23:30 Ur Squamous Epith Cells Few /HPF (NEGATIVE) 11/07/23 23: Urine Bacteria Trace /HPF (NEGATIVE) 11/07/23 23:30 Ur Culture Indicated? No/not indicated 11/07/23 23: Digoxin < 0.20 ng/mL (0.9-2) L 11/08/23 05:25 Plan (1) Cancer, metastatic to liver: Status: Acute Plan: The patient is going to discuss hospice with her son and family today. We will follow-up with her during morning rounds to see what she has decided. It looks like the patient likely has pancreatic cancer with metastatic disease to her liver. In the meantime we will continue IV hydration and pain control with morphine sulfate. We will plan on transitioning over to oral pain medication to see if this will control her pain and symptoms. Will consult [facility] hospice. (2) Pancreatic mass: Status: Acute (3) Abdominal pain: Status: Acute Qualifiers: Abdominal location: generalized Qualified Code(s): R10.84 - Generalized abdominal pain Plan: Check CT abdomen and pelvis with IV and p.o. contrast. Consult general surgery. IV morphine for pain control. Make patient n.p.o. for now. (4) Generalized weakness: Status: Acute (5) Leukocytosis: Status: Acute Plan: Empirically cover the patient with Zosyn. (6) Nausea: Status: Acute Plan: IV or p.o. Zofran. (7) Hyperglycemia: Status: Acute Plan: Check hemoglobin A1c.
--- NOTE | 2023-11-10 09:24 | PCM.PROG ---
Progress Note Progress Note for Day of Date of Exam: 11/10/23 Subjective Subjective: The patient is resting comfortably this morning. I just got off the phone with her son from [place] Mr. Nolan Corado. He plans on coming in this weekend to discuss hospice care with the patient. Yesterday, the oral hydrocodone we started the patient on seems to be controlling her pain and she seems to tolerate it okay. I see that her blood pressure is still elevated, so I will add metoprolol to tartrate 25 mg twice daily as her heart rate is slightly high as well. She does have a history of atrial fibrillation and is on digoxin for that. I have kept her on a Cardizem 240 mg as well. We will follow her blood pressure later's afternoon after we give the metoprolol time to work. If this does not control her heart rate and hypertension we will increase the dose to 50 mg twice daily. We have consulted [facility] for when the patient goes home secondary to her metastatic pancreatic cancer. Yesterday, I stated that it was [facility], but I meant to say [facility]. There is no [facility] hospice but [facility] home health care. Past Medical Family Social History Allergies: Allergies procaine Allergy (Verified 06/17/23 07:29) tetracycline Allergy (Verified 06/17/23 09:06) Review of Systems ROS: No change since H&P Vital Signs and I&O's Vital Signs: Vital Signs Temperature 97.3 F Temperature 98.3 F Pulse Rate [Right Brachial] 109 Pulse Rate [Right Brachial] 92 Pulse Rate 109 Respiratory Rate 20 Respiratory Rate 18 Respiratory Rate 18 Blood Pressure [Left Arm] 188/74 Blood Pressure [Left Arm] 177/79 O2 Sat by Pulse Oximetry 93 O2 Sat by Pulse Oximetry 96 Intake and Output: Intake & Output 11/07/23 11/08/23 11/09/23 11/10/23 11:59 11:59 11:59 11:59 Intake Total 1250 / 1250 2386 / 2386 2725 / 2725 Balance 1250 / 1250 2386 / 2386 2725 / 2725 Physical Exam Oriented: Normal, Time, Person and Place Eyes: Normal Ear: Normal Nose: Normal Throat: Normal Respiratory: Normal Cardiovascular: Normal Auscultation: Bowel Sounds: Normal Tenderness: RLQ, LLQ and Suprapubic Skin: Normal Musculoskeletal: Normal Psychiatric: Depression Mood Description: Apathetic, Depressed and Sad Affect: Flat Speech Pattern: Clear and Appropriate Laboratory and Diagnostics 11/10/23 05:17 11/10/23 05:17 Labs: 11/07/23 14:44 Blood Blood Culture - Preliminary 11/07/23 14:33 Blood Blood Culture - Preliminary Laboratory WBC 13.5 X10^3/uL (3.6-10.0) H 11/10/23 05:17 RBC 4.33 X10^6/uL (3.5-5.4) 11/10/23 05:17 Hgb 13.4 g/dL (12.0-16.0) 11/10/23 05:17 Hct 40.5 % (36.0-47.0) 11/10/23 05:17 MCV 93.5 fL (80.0-100.0) 11/10/23 05:17 MCH 31.0 pg (27.0-34.0) 11/10/23 05:17 MCHC 33.1 g/dL (33.0-35.0) 11/10/23 05:17 RDW 14.0 % (11.6-16.5) 11/10/23 05:17 Plt Count 123 X10^3/uL (150.0-450.0) L 11/10/23 05:17 MPV 10.2 fL (7.4-11.0) 11/10/23 05:17 Neut % (Auto) 80.3 % (42.0-75.0) H 11/10/23 05:17 Lymph % (Auto) 5.1 % (21.0-51.0) L 11/10/23 05:17 [place] % (Auto) 10.9 % (0.0-13.0) 11/10/23 05:17 Eos % (Auto) 2.8 % (0.9-2.9) 11/10/23 05:17 Baso % (Auto) 0.9 % (0.2-1.0) 11/10/23 05:17 Neut # (Auto) 10.9 x10^3/uL (2.2-4.8) H 11/10/23 05:17 Lymph # (Auto) 0.7 X10^3/uL (1.3-2.9) L 11/10/23 05:17 [place] # (Auto) 1.5 x10^3/uL (0.3-0.8) H 11/10/23 05:17 Eos # (Auto) 0.4 x10^3/uL (0.0-0.2) H 11/10/23 05:17 Baso # (Auto) 0.1 X10^3/uL (0.0-0.1) 11/10/23 05:17 Absolute Nucleated RBC 0.0 /100WBC 11/10/23 05:17 ESR 2 MM/HOUR (0-20) 11/07/23 14:33 Sodium 132 mmol/L (136-145) L 11/10/23 05:17 Corrected Sodium TNP 11/10/23 05:17 Potassium 4.0 mmol/L (3.5-5.1) 11/10/23 05:17 Chloride 100 mmol/L (98-107) 11/10/23 05:17 Carbon Dioxide 23.9 mmol/L (21-32) 11/10/23 05:17 BUN 10 mg/dL (7-18) 11/10/23 05:17 Creatinine 0.69 mg/dL (0.55-1.02) 11/10/23 05:17 Est GFR (MDRD) Af Amer > 60 (>60) 11/10/23 05:17 Est GFR (MDRD) Non-Af > 60 (>60) 11/10/23 05:17 Glucose 97 mg/dL (65-99) 11/10/23 05:17 Lactic Acid 1.3 mmol/L (0.4-2.0) 11/07/23 14:33 Calcium 8.0 mg/dL (8.5-10.1) L 11/10/23 05:17 Corrected Calcium 9.3 mg/dL (8.5-10.1) 11/10/23 05:17 Magnesium 2.2 mg/dL (2.0-2.9) 11/10/23 05:17 Total Bilirubin 0.90 mg/dL (0.2-1.0) 11/10/23 05:17 AST 63 Units/L (15-37) H 11/10/23 05:17 ALT 27 Units/L (12-78) 11/10/23 05:17 Alkaline Phosphatase 148 Units/L (46-116) H 11/10/23 05:17 C-Reactive Protein 42.20 mg/L (0-3.0) H 11/07/23 14:33 Total Protein 5.1 g/dL (6.4-8.2) L 11/10/23 05:17 Albumin 2.4 g/dL (3.4-5.0) L 11/10/23 05:17 Globulin 2.7 g/dL (2.5-4.5) 11/10/23 05:17 Albumin/Globulin Ratio 0.9 Ratio (1.1-2.1) L 11/10/23 05:17 Specimen Type Clean catch urine 11/07/23 23:30 Urine Color Yellow (YELLOW) 11/07/23 23:30 Urine Appearance Clear (CLEAR) 11/07/23 23:30 Urine pH 5.0 (5.0 - 8.0) 11/07/23 23:30 Ur Specific [place] 1.010 (1.000-1.030) 11/07/23 23:30 Urine Protein 2+ (NEGATIVE) 11/07/23 23:30 Urine Glucose (UA) Negative (NEGATIVE) 11/07/23 23:30 Urine Ketones Negative (NEGATIVE) 11/07/23 23:30 Urine Blood 3+ (NEGATIVE) 11/07/23 23:30 Urine Nitrite Negative (NEGATIVE) 11/07/23 23:30 Urine Bilirubin Negative (NEGATIVE) 11/07/23 23:30 Urine Urobilinogen Normal (NORMAL) 11/07/23 23:30 Ur Leukocyte Esterase Negative (NEGATIVE) 11/07/23 23:30 Urine RBC 3-5 /HPF (0-3) A 11/07/23 23:30 Urine WBC 0-2 /HPF (0-5) 11/07/23 23:30 Ur Squamous Epith Cells Few /HPF (NEGATIVE) 11/07/23 23:30 Urine Bacteria Trace /HPF (NEGATIVE) 11/07/23 23:30 Ur Culture Indicated? No/not indicated 11/07/23 23:30 Digoxin < 0.20 ng/mL (0.9-2) L 11/08/23 05:25 Radiology Reviewed: Yes Plan (1) Cancer, metastatic to liver: Status: Acute Plan: The patient tolerated the oral hydrocodone yesterday. I will consult [facility]. I have discussed the patient's condition with her son, Nolan, and he will be coming in this weekend from [place]. Pos sible discharge home tomorrow. (2) Pancreatic mass: Status: Acute (3) Abdominal pain: Status: Acute Qualifiers: Abdominal location: generalized Qualified Code(s): R10.84 - Generalized abdominal pain Plan: Check CT abdomen and pelvis with IV and p.o. contrast. Consult general surgery. IV morphine for pain control. Make patient n.p.o. for now. (4) Generalized weakness: Status: Acute (5) Leukocytosis: Status: Acute Plan: Empirically cover the patient with Zosyn. (6) Nausea: Status: Acute Plan: IV or p.o. Zofran. (7) Hyperglycemia: Status: Acute Plan: Check hemoglobin A1c. (8) Hypertension: Status: Chronic Qualifiers: Hypertension type: essential hypertension Qualified Code(s): I10 - Essential (primary) hypertension Plan: Add metoprolol to tartrate 25 mg 1 p.o. twice daily. Recheck blood pressure later today and again tomorrow morning. If it remains elevated and she remains slightly tachycardic we will increase the dose to 50 mg twice daily.
[2023-11-10] MEDS: NYSTATIN SUSP PO SCH (09:38)
[2023-11-10] MEDS: LOPRESSOR TAB 25 MG PO SCH (09:38)
--- NOTE | 2023-11-10 10:56 | RAD ---
EXAM:CHEST, 1 VIEWHISTORY:YANETH PLEURAL EFFUSION ;COMPARISON:Prior study or studies were utilized for comparison during interpretation with the most relevant dated 06/23/2023TECHNIQUE:CHEST, 1 VIEWFINDINGS:Chest:Lines and tubes: NoneMediastinum: Cardiomegaly.Pulmonary vessels: There is pulmonary vascular congestion.Lung urbano: Patchy opacities are seenPleura: Bilateral pleural effusionsBones and soft tissues: No acute osseous or soft tissue abnormality.IMPRESSION:1. Findings suggest heart failure2. Mild pulmonary edema and bilateral pleural effusions.THIS IS AN ELECTRONICALLY VERIFIED FINAL REPORT11/10/2023 10:53 AM - Electronically signed by Rodriguez Corrigan MD
[2023-11-10] MEDS: XOPENEX 1.25 MG/3 ML NEBULE NEB PRN (17:15)
[2023-11-10] MEDS: LASIX IVP ONE (17:30)
[2023-11-10 17:51] LABS: APPEARANCE,URINE CLEAR (CLEAR); BILIRUBIN,URINE NEGATIVE (NEGATIVE); BLOOD/HEMOGLOBIN,URINE 2+ (NEGATIVE); COLOR,URINE YELLOW (YELLOW); GLUCOSE, URINE NEGATIVE (NEGATIVE); KETONES,URINE 1+ (NEGATIVE); LEUKOCYTE ESTERASE ,URINE NEGATIVE (NEGATIVE); NITRITES,URINE NEGATIVE (NEGATIVE); PROTEIN,URINE 2+ (NEGATIVE); UROBILINOGEN,URINE NORMAL (NORMAL)
[2023-11-10 17:57] LABS: RBC,URINE 0-2 /HPF (0-3); SQUAMOUS EPITHELIAL CELL,UR RARE /HPF (NEGATIVE)
[2023-11-10 17:58] LABS: BACTERIA,URINE TRACE /HPF (NEGATIVE)
[2023-11-11 06:12] LABS: BASOPHILS # (AUTO) 0.2 X10^3/uL (0.0-0.1); BASOPHILS % (AUTO) 1.2 % (0.2-1.0); EOSINOPHILS # (AUTO) 0.4 x10^3/uL (0.0-0.2); EOSINOPHILS % (AUTO) 2.9 % (0.9-2.9); HEMATOCRIT 39.7 % (36.0-47.0); HEMOGLOBIN 13.3 g/dL (12.0-16.0); LYMPHOCYTES # (AUTO) 0.9 X10^3/uL (1.3-2.9); MEAN CORPUSCULAR HEMOGLOBIN 31.4 pg (27.0-34.0); MEAN CORPUSCULAR HGB CONC 33.4 g/dL (33.0-35.0); MEAN CORPUSCULAR VOLUME 93.9 fL (80.0-100.0); MEAN PLATELET VOLUME 10.4 fL (7.4-11.0); MONOCYTES # (AUTO) 2.1 x10^3/uL (0.3-0.8); MONOCYTES % (AUTO) 14.3 % (0.0-13.0); NEUTROPHILS # (AUTO) 11.1 x10^3/uL (2.2-4.8); NEUTROPHILS % (AUTO) 75.6 % (42.0-75.0); PLATELET COUNT 119 X10^3/uL (150.0-450.0); RED BLOOD COUNT 4.23 X10^6/uL (3.5-5.4); RED CELL DISTRIBUTION WIDTH 14.2 % (11.6-16.5); WHITE BLOOD COUNT 14.7 X10^3/uL (3.6-10.0)
[2023-11-11 06:40] LABS: ALANINE AMINOTRANSFERASE 29 Units/L (12-78); ALBUMIN 2.3 g/dL (3.4-5.0); ALKALINE PHOSPHATASE 145 Units/L (46-116); ASPARTATE AMINO TRANSFERASE 61 Units/L (15-37); BLOOD UREA NITROGEN 13 mg/dL (7-18); CALCIUM 8.3 mg/dL (8.5-10.1); CARBON DIOXIDE 24.9 mmol/L (21-32); CHLORIDE 99 mmol/L (98-107); COR CA(FOR HYPOALB) 9.7 mg/dL (8.5-10.1); CREATININE 0.94 mg/dL (0.55-1.02); GLUCOSE 98 mg/dL (65-99); SODIUM 132 mmol/L (136-145); TOTAL PROTEIN 5.2 g/dL (6.4-8.2); eGFR NON BLACK RACES > 60 (>60)
[2023-11-11] MEDS: MICRO K EXTEN CAP 10 MEQ PO SCH (09:22)
[2023-11-11] MEDS: MEGACE PO SCH (09:22)
[2023-11-11] MEDS: LASIX IVP SCH (09:26)
--- NOTE | 2023-11-11 20:52 | PCM.PROG ---
Progress Note Progress Note for Day of Date of Exam: 11/11/23 Subjective Subjective: This is a pleasant 88-year-old white female with a pancreatic mass which is likely metastatic pancreatic cancer to her liver. The patient appears to be mildly uncomfortable this morning. I discussed hospice with her son yesterday morning. He is going to discuss that with his mother over this weekend. Will plan on getting the patient discharged on hospice next week with [facility]. In the meantime we are treating her pain and nausea. She has worsening leukocytosis over the last 3 mornings but has been afebrile. When I add IV levofloxacin for improved coverage along with the Zosyn this morning. Repeat labs in AM. Past Medical Family Social History Allergies: Allergies procaine Allergy (Verified 06/17/23 07:29) tetracycline Allergy (Verified 06/17/23 09:06) Review of Systems ROS: No change since H&P Vital Signs and I&O's Vital Signs: Vital Signs Temperature 97.9 F Pulse Rate [Right Brachial] 68 Respiratory Rate 17 Blood Pressure [Left Arm] 153/63 O2 Sat by Pulse Oximetry 94 Intake and Output: Intake & Output 11/09/23 11/10/23 11/11/23 11/12/23 11:59 11:59 11:59 11:59 Intake Total 2386 / 2386 2725 / 2725 1884 / 1884 607 / 607 Output Total 1700 / 1700 650 / 650 Balance 2386 / 2386 2725 / 2725 184 / 184 -43 / -43 Physical Exam Oriented: Normal, Time, Person and Place Eyes: Normal Ear: Normal Nose: Normal Throat: Normal Respiratory: Normal Cardiovascular: Normal Auscultation: Bowel Sounds: Normal Tenderness: RLQ, LLQ and Suprapubic Skin: Normal Musculoskeletal: Normal Psychiatric: Depression Mood Description: Apathetic, Depressed and Sad Affect: Flat Speech Pattern: Clear and Appropriate Laboratory and Diagnostics 11/11/23 05:20 11/11/23 05:20 Labs: 11/07/23 14:44 Blood Blood Culture - Preliminary 11/07/23 14:33 Blood Blood Culture - Preliminary Laboratory WBC 14.7 X10^3/uL (3.6-10.0) H 11/11/23 05:20 RBC 4.23 X10^6/uL (3.5-5.4) 11/11/23 05:20 Hgb 13.3 g/dL (12.0-16.0) 11/11/23 05:20 Hct 39.7 % (36.0-47.0) 11/11/23 05:20 MCV 93.9 fL (80.0-100.0) 11/11/23 05:20 MCH 31.4 pg (27.0-34.0) 11/11/23 05:20 MCHC 33.4 g/dL (33.0-35.0) 11/11/23 05:20 RDW 14.2 % (11.6-16.5) 11/11/23 05:20 Plt Count 119 X10^3/uL (150.0-450.0) L 11/11/23 05:20 MPV 10.4 fL (7.4-11.0) 11/11/23 05:20 Neut % (Auto) 75.6 % (42.0-75.0) H 11/11/23 05:20 Lymph % (Auto) 6.0 % (21.0-51.0) L 11/11/23 05:20 [place] % (Auto) 14.3 % (0.0-13.0) H 11/11/23 05:20 Eos % (Auto) 2.9 % (0.9-2.9) 11/11/23 05:20 Baso % (Auto) 1.2 % (0.2-1.0) H 11/11/23 05:20 Neut # (Auto) 11.1 x10^3/uL (2.2-4.8) H 11/11/23 05:20 Lymph # (Auto) 0.9 X10^3/uL (1.3-2.9) L 11/11/23 05:20 [place] # (Auto) 2.1 x10^3/uL (0.3-0.8) H 11/11/23 05:20 Eos # (Auto) 0.4 x10^3/uL (0.0-0.2) H 11/11/23 05:20 Baso # (Auto) 0.2 X10^3/uL (0.0-0.1) H 11/11/23 05:20 Absolute Nucleated RBC 0.0 /100WBC 11/11/23 05:20 ESR 2 MM/HOUR (0-20) 11/07/23 14:33 Sodium 132 mmol/L (136-145) L 11/11/23 05:20 Corrected Sodium TNP 11/11/23 05:20 Potassium 4.0 mmol/L (3.5-5.1) 11/11/23 05:20 Chloride 99 mmol/L (98-107) 11/11/23 05:20 Carbon Dioxide 24.9 mmol/L (21-32) 11/11/23 05:20 BUN 13 mg/dL (7-18) 11/11/23 05:20 Creatinine 0.94 mg/dL (0.55-1.02) 11/11/23 05:20 Est GFR (MDRD) Af Amer > 60 (>60) 11/11/23 05:20 Est GFR (MDRD) Non-Af > 60 (>60) 11/11/23 05:20 Glucose 98 mg/dL (65-99) 11/11/23 05:20 Lactic Acid 1.3 mmol/L (0.4-2.0) 11/07/23 14:33 Calcium 8.3 mg/dL (8.5-10.1) L 11/11/23 05:20 Corrected Calcium 9.7 mg/dL (8.5-10.1) 11/11/23 05:20 Magnesium 2.0 mg/dL (2.0-2.9) 11/11/23 05:20 Total Bilirubin 0.80 mg/dL (0.2-1.0) 11/11/23 05:20 AST 61 Units/L (15-37) H 11/11/23 05:20 ALT 29 Units/L (12-78) 11/11/23 05:20 Alkaline Phosphatase 145 Units/L (46-116) H 11/11/23 05:20 C-Reactive Protein 42.20 mg/L (0-3.0) H 11/07/23 14:33 B-Natriuretic Peptide 946 pg/mL (0-79) H 11/11/23 05:20 Total Protein 5.2 g/dL (6.4-8.2) L 11/11/23 05:20 Albumin 2.3 g/dL (3.4-5.0) L 11/11/23 05:20 Globulin 2.9 g/dL (2.5-4.5) 11/11/23 05:20 Albumin/Globulin Ratio 0.8 Ratio (1.1-2.1) L 11/11/23 05:20 Specimen Type Catherized urine 11/10/23 17:15 Urine Color Yellow (YELLOW) 11/10/23 17:15 Urine Appearance Clear (CLEAR) 11/10/23 17:15 Urine pH 5.0 (5.0 - 8.0) 11/10/23 17:15 Ur Specific [place] 1.025 (1.000-1.030) 11/10/23 17:15 Urine Protein 2+ (NEGATIVE) 11/10/23 17:15 Urine Glucose (UA) Negative (NEGATIVE) 11/10/23 17:15 Urine Ketones 1+ (NEGATIVE) 11/10/23 17:15 Urine Blood 2+ (NEGATIVE) 11/10/23 17:15 Urine Nitrite Negative (NEGATIVE) 11/10/23 17:15 Urine Bilirubin Negative (NEGATIVE) 11/10/23 17:15 Urine Urobilinogen Normal (NORMAL) 11/10/23 17:15 Ur Leukocyte Esterase Negative (NEGATIVE) 11/10/23 17:15 Urine RBC 0-2 /HPF (0-3) 11/10/23 17:15 Urine WBC 0-2 /HPF (0-5) 11/10/23 17:15 Ur Squamous Epith Cells Rare /HPF (NEGATIVE) 11/10/23 17:15 Amorphous Sediment 1+ /HPF (NEGATIVE) 11/10/23 17:15 Urine Bacteria Trace /HPF (NEGATIVE) 11/10/23 17:15 Ur Culture Indicated? No/not indicated 11/10/23 17:15 Digoxin < 0.20 ng/mL (0.9-2) L 11/08/23 05:25 Plan (1) Cancer, metastatic to liver: Status: Acute Plan: The patient tolerated the oral hydrocodone yesterday. I will consult [facility]. I have discussed the patient's condition with her son, Nolan, and he will be coming in this weekend from [place]. Possible discharge home tomorrow. (2) Pancreatic mass: Status: Acute (3) Abdominal pain: Status: Acute Qualifiers: Abdominal location: generalized Qualified Code(s): R10.84 - Generalized abdominal pain Plan: Check CT abdomen and pelvis with IV and p.o. contrast. Consult general surgery. IV morphine for pain control. Make patient n.p.o. for now. (4) Generalized weakness: Status: Acute (5) Leukocytosis: Status: Acute Plan: And IV Levaquin 500 mg IV daily today. Continue patient on IV Zosyn as well. (6) Nausea: Status: Acute Plan: IV or p.o. Zofran. (7) Hyperglycemia: Status: Acute Plan: Check hemoglobin A1c. (8) Hypertension: Status: Chronic Qualifiers: Hypertension type: essential hypertension Qualified Code(s): I10 - Essential (primary) hypertension Plan: Add metoprolol to tartrate 25 mg 1 p.o. twice daily. Recheck blood pressure later today and again tomorrow morning. If it remains elevated and she remains slightly tachycardic we will increase the dose to 50 mg twice daily.
[2023-11-11] MEDS: LEVAQUIN PREMIX IV 500 MG 500 MG/100 ML BAG IV SCH (21:53)
[2023-11-12 05:25] LABS: BASOPHILS # (AUTO) 0.1 X10^3/uL (0.0-0.1); BASOPHILS % (AUTO) 0.6 % (0.2-1.0); EOSINOPHILS # (AUTO) 0.6 x10^3/uL (0.0-0.2); EOSINOPHILS % (AUTO) 4.1 % (0.9-2.9); HEMOGLOBIN 12.5 g/dL (12.0-16.0); LYMPHOCYTES # (AUTO) 0.7 X10^3/uL (1.3-2.9); MEAN CORPUSCULAR HEMOGLOBIN 30.9 pg (27.0-34.0); MEAN CORPUSCULAR VOLUME 93.6 fL (80.0-100.0); MEAN PLATELET VOLUME 10.4 fL (7.4-11.0); MONOCYTES # (AUTO) 2.2 x10^3/uL (0.3-0.8); MONOCYTES % (AUTO) 15.7 % (0.0-13.0); NEUTROPHILS # (AUTO) 10.2 x10^3/uL (2.2-4.8); NEUTROPHILS % (AUTO) 74.6 % (42.0-75.0); PLATELET COUNT 124 X10^3/uL (150.0-450.0); RED BLOOD COUNT 4.06 X10^6/uL (3.5-5.4); RED CELL DISTRIBUTION WIDTH 13.9 % (11.6-16.5); WHITE BLOOD COUNT 13.7 X10^3/uL (3.6-10.0)
[2023-11-12 05:41] LABS: ALANINE AMINOTRANSFERASE 23 Units/L (12-78); ALKALINE PHOSPHATASE 139 Units/L (46-116); ASPARTATE AMINO TRANSFERASE 50 Units/L (15-37); BLOOD UREA NITROGEN 20 mg/dL (7-18); CALCIUM 8.1 mg/dL (8.5-10.1); CARBON DIOXIDE 24.2 mmol/L (21-32); CHLORIDE 97 mmol/L (98-107); COR CA(FOR HYPOALB) 9.7 mg/dL (8.5-10.1); CREATININE 1.15 mg/dL (0.55-1.02); GLUCOSE 100 mg/dL (65-99); MAGNESIUM 1.8 mg/dL (2.0-2.9); POTASSIUM 3.7 mmol/L (3.5-5.1); SODIUM 129 mmol/L (136-145); TOTAL PROTEIN 4.8 g/dL (6.4-8.2); eGFR NON BLACK RACES 48 (>60)
[2023-11-12] MEDS ORDERED: CONSULT PHARMACY - POTASSIUM & MAGNESIUM XX SCH (06:00)
[2023-11-12] MEDS: K-DUR TAB 20 MEQ PO SCH (11:24)
[2023-11-12] MEDS: MAG-OX TAB PO SCH (11:25)
[2023-11-12] MEDS: DIFLUCAN 200 MG IV PREMIX* 200 MG/100 ML BAG IV SCH (17:35)
[2023-11-12] MEDS: TYLENOL 325 MG TAB PO PRN (20:44)
[2023-11-13 06:12] LABS: BASOPHILS # (AUTO) 0.1 X10^3/uL (0.0-0.1); BASOPHILS % (AUTO) 0.9 % (0.2-1.0); EOSINOPHILS # (AUTO) 0.4 x10^3/uL (0.0-0.2); HEMATOCRIT 36.8 % (36.0-47.0); HEMOGLOBIN 12.2 g/dL (12.0-16.0); LYMPHOCYTES # (AUTO) 1.1 X10^3/uL (1.3-2.9); LYMPHOCYTES % (AUTO) 8.6 % (21.0-51.0); MEAN CORPUSCULAR HEMOGLOBIN 30.8 pg (27.0-34.0); MEAN CORPUSCULAR HGB CONC 33.2 g/dL (33.0-35.0); MEAN CORPUSCULAR VOLUME 92.8 fL (80.0-100.0); MEAN PLATELET VOLUME 10.2 fL (7.4-11.0); MONOCYTES # (AUTO) 1.9 x10^3/uL (0.3-0.8); MONOCYTES % (AUTO) 15.3 % (0.0-13.0); NEUTROPHILS % (AUTO) 72.2 % (42.0-75.0); PLATELET COUNT 151 X10^3/uL (150.0-450.0); RED BLOOD COUNT 3.96 X10^6/uL (3.5-5.4); RED CELL DISTRIBUTION WIDTH 14.2 % (11.6-16.5); WHITE BLOOD COUNT 12.4 X10^3/uL (3.6-10.0)
[2023-11-13 06:24] LABS: ALANINE AMINOTRANSFERASE 18 Units/L (12-78); ALBUMIN 1.8 g/dL (3.4-5.0); ALKALINE PHOSPHATASE 129 Units/L (46-116); ASPARTATE AMINO TRANSFERASE 51 Units/L (15-37); BLOOD UREA NITROGEN 26 mg/dL (7-18); CALCIUM 8.2 mg/dL (8.5-10.1); CARBON DIOXIDE 22.6 mmol/L (21-32); CHLORIDE 100 mmol/L (98-107); GLUCOSE 87 mg/dL (65-99); MAGNESIUM 1.9 mg/dL (2.0-2.9); POTASSIUM 4.3 mmol/L (3.5-5.1); SODIUM 135 mmol/L (136-145); TOTAL PROTEIN 4.6 g/dL (6.4-8.2); eGFR NON BLACK RACES 35 (>60)
[2023-11-13] MEDS ORDERED: CONSULT PHARMACY - POTASSIUM & MAGNESIUM XX SCH (07:00)
[2023-11-13] MEDS: MAG-OX TAB PO SCH (08:53)
[2023-11-14 06:06] LABS: HEMOGLOBIN 12.4 g/dL (12.0-16.0); RED CELL DISTRIBUTION WIDTH 14.3 % (11.6-16.5)
[2023-11-14 06:11] LABS: BASOPHILS # (AUTO) 0.1 X10^3/uL (0.0-0.1); BASOPHILS % (AUTO) 0.8 % (0.2-1.0); EOSINOPHILS # (AUTO) 0.3 x10^3/uL (0.0-0.2); EOSINOPHILS % (AUTO) 1.7 % (0.9-2.9); HEMATOCRIT 37.4 % (36.0-47.0); LYMPHOCYTES # (AUTO) 1.3 X10^3/uL (1.3-2.9); LYMPHOCYTES % (AUTO) 8.8 % (21.0-51.0); MEAN CORPUSCULAR HEMOGLOBIN 31.4 pg (27.0-34.0); MEAN CORPUSCULAR HGB CONC 33.3 g/dL (33.0-35.0); MEAN CORPUSCULAR VOLUME 94.4 fL (80.0-100.0); MEAN PLATELET VOLUME 9.8 fL (7.4-11.0); MONOCYTES # (AUTO) 1.9 x10^3/uL (0.3-0.8); MONOCYTES % (AUTO) 12.8 % (0.0-13.0); NEUTROPHILS # (AUTO) 11.4 x10^3/uL (2.2-4.8); NEUTROPHILS % (AUTO) 75.9 % (42.0-75.0); PLATELET COUNT 207 X10^3/uL (150.0-450.0); RED BLOOD COUNT 3.96 X10^6/uL (3.5-5.4)
[2023-11-14 06:25] LABS: ALANINE AMINOTRANSFERASE 20 Units/L (12-78); ALBUMIN 1.9 g/dL (3.4-5.0); ALKALINE PHOSPHATASE 133 Units/L (46-116); ASPARTATE AMINO TRANSFERASE 60 Units/L (15-37); BLOOD UREA NITROGEN 32 mg/dL (7-18); CALCIUM 8.7 mg/dL (8.5-10.1); CARBON DIOXIDE 18.6 mmol/L (21-32); CHLORIDE 98 mmol/L (98-107); COR CA(FOR HYPOALB) 10.4 mg/dL (8.5-10.1); CREATININE 1.85 mg/dL (0.55-1.02); GLUCOSE 79 mg/dL (65-99); POTASSIUM 4.7 mmol/L (3.5-5.1); SODIUM 132 mmol/L (136-145); TOTAL PROTEIN 4.8 g/dL (6.4-8.2); eGFR NON BLACK RACES 27 (>60)
[2023-11-14] MEDS: LEVAQUIN PREMIX IV 250 MG 250 MG/50 ML BAG IV SCH (09:48)
[2023-11-14] MEDS: DIFLUCAN 100 MG IV (MIX by PHARMACY)* 100 MG/50 ML BAG IV SCH (10:22)
--- NOTE | 2023-11-14 20:49 | PCM.PROG ---
Progress Note Progress Note for Day of Date of Exam: 11/14/23 Subjective Subjective: This is a pleasant 88-year-old white female with a pancreatic mass, which is likely metastatic pancreatic cancer to her liver. The patient appears to be mildly uncomfortable this morning. The patient's pain seems to be getting worse, but she does have IV morphine ordered, and I have ordered the nurses to give her some this morning. Her family states that they would not be able to take her home for home hospice as they would not be able to care for her. Instead, they want to have her sent to [facility] in [place], [place], to do hospice there. We will start making the arrangements for that, and once they can accept her, we will transfer her there. Continue pain control and comfort measures at this time. Past Medical Family Social History Allergies: Allergies procaine Allergy (Verified 06/17/23 07:29) tetracycline Allergy (Verified 06/17/23 09:06) Review of Systems ROS: No change since H&P Vital Signs and I&O's Vital Signs: Vital Signs Temperature 98.2 F Temperature 97 F Pulse Rate [Right Brachial] 57 Pulse Rate [Right Brachial] 62 Pulse Rate 52 Pulse Rate 79 Respiratory Rate 16 Respiratory Rate 16 Blood Pressure [Right Arm] 101/57 Blood Pressure [Right Arm] 104/53 O2 Sat by Pulse Oximetry 93 O2 Sat by Pulse Oximetry 96 O2 Sat by Pulse Oximetry 96 Intake and Output: Intake & Output 11/12/23 11/13/23 11/14/23 11/15/23 11:59 11:59 11:59 11:59 Intake Total 1081 / 1081 1238 / 1238 1486 / 1486 418 / 418 Output Total 950 / 950 1050 / 1050 560 / 560 75 / 75 Balance 131 / 131 188 / 188 926 / 926 343 / 343 Physical Exam Oriented: Normal, Time, Person and Place Eyes: Normal Ear: Normal Nose: Normal Throat: Normal Respiratory: Normal Cardiovascular: Normal Auscultation: Bowel Sounds: Normal Tenderness: RLQ, LLQ and Suprapubic Skin: Normal Musculoskeletal: Normal Psychiatric: Depression Mood Description: Apathetic, Depressed and Sad Affect: Flat Speech Pattern: Clear and Appropriate Laboratory and Diagnostics 11/14/23 05:34 11/14/23 05:34 Labs: 11/07/23 14:44 Blood Blood Culture - Final 11/07/23 14:33 Blood Blood Culture - Final Laboratory WBC 15.0 X10^3/uL (3.6-10.0) H 11/14/23 05:34 RBC 3.96 X10^6/uL (3.5-5.4) 11/14/23 05:34 Hgb 12.4 g/dL (12.0-16.0) 11/14/23 05:34 Hct 37.4 % (36.0-47.0) 11/14/23 05:34 MCV 94.4 fL (80.0-100.0) 11/14/23 05:34 MCH 31.4 pg (27.0-34.0) 11/14/23 05:34 MCHC 33.3 g/dL (33.0-35.0) 11/14/23 05:34 RDW 14.3 % (11.6-16.5) 11/14/23 05:34 Plt Count 207 X10^3/uL (150.0-450.0) 11/14/23 05:34 MPV 9.8 fL (7.4-11.0) 11/14/23 05:34 Neut % (Auto) 75.9 % (42.0-75.0) H 11/14/23 05:34 Lymph % (Auto) 8.8 % (21.0-51.0) L 11/14/23 05:34 [place] % (Auto) 12.8 % (0.0-13.0) 11/14/23 05:34 Eos % (Auto) 1.7 % (0.9-2.9) 11/14/23 05:34 Baso % (Auto) 0.8 % (0.2-1.0) 11/14/23 05:34 Neut # (Auto) 11.4 x10^3/uL (2.2-4.8) H 11/14/23 05:34 Lymph # (Auto) 1.3 X10^3/uL (1.3-2.9) 11/14/23 05:34 [place] # (Auto) 1.9 x10^3/uL (0.3-0.8) H 11/14/23 05:34 Eos # (Auto) 0.3 x10^3/uL (0.0-0.2) H 11/14/23 05:34 Baso # (Auto) 0.1 X10^3/uL (0.0-0.1) 11/14/23 05:34 Absolute Nucleated RBC 0.1 /100WBC 11/14/23 05:34 ESR 2 MM/HOUR (0-20) 11/07/23 14:33 Sodium 132 mmol/L (136-145) L 11/14/23 05:34 Corrected Sodium TNP 11/14/23 05:34 Potassium 4.7 mmol/L (3.5-5.1) 11/14/23 05:34 Chloride 98 mmol/L (98-107) 11/14/23 05:34 Carbon Dioxide 18.6 mmol/L (21-32) L 11/14/23 05:34 BUN 32 mg/dL (7-18) H 11/14/23 05:34 Creatinine 1.85 mg/dL (0.55-1.02) H 11/14/23 05:34 Est GFR (MDRD) Af Amer 33 (>60) L 11/14/23 05:34 Est GFR (MDRD) Non-Af 27 (>60) L 11/14/23 05:34 Glucose 79 mg/dL (65-99) 11/14/23 05:34 Lactic Acid 1.3 mmol/L (0.4-2.0) 11/07/23 14:33 Calcium 8.7 mg/dL (8.5-10.1) 11/14/23 05:34 Corrected Calcium 10.4 mg/dL (8.5-10.1) H 11/14/23 05:34 Magnesium 1.9 mg/dL (2.0-2.9) L 11/13/23 05:32 Total Bilirubin 0.60 mg/dL (0.2-1.0) 11/14/23 05:34 AST 60 Units/L (15-37) H 11/14/23 05:34 ALT 20 Units/L (12-78) 11/14/23 05:34 Alkaline Phosphatase 133 Units/L (46-116) H 11/14/23 05:34 C-Reactive Protein 42.20 mg/L (0-3.0) H 11/07/23 14:33 B-Natriuretic Peptide 843 pg/mL (0-79) H 11/12/23 04:30 Total Protein 4.8 g/dL (6.4-8.2) L 11/14/23 05:34 Albumin 1.9 g/dL (3.4-5.0) L 11/14/23 05:34 Globulin 2.9 g/dL (2.5-4.5) 11/14/23 05:34 Albumin/Globulin Ratio 0.7 Ratio (1.1-2.1) L 11/14/23 05:34 Specimen Type Catherized urine 11/10/23 17:15 Urine Color Yellow (YELLOW) 11/10/23 17:15 Urine Appearance Clear (CLEAR) 11/10/23 17:15 Urine pH 5.0 (5.0 - 8.0) 11/10/23 17:15 Ur Specific [place] 1.025 (1.000-1.030) 11/10/23 17:15 Urine Protein 2+ (NEGATIVE) 11/10/23 17:15 Urine Glucose (UA) Negative (NEGATIVE) 11/10/23 17:15 Urine Ketones 1+ (NEGATIVE) 11/10/23 17:15 Urine Blood 2+ (NEGATIVE) 11/10/23 17:15 Urine Nitrite Negative (NEGATIVE) 11/10/23 17:15 Urine Bilirubin Negative (NEGATIVE) 11/10/23 17:15 Urine Urobilinogen Normal (NORMAL) 11/10/23 17:15 Ur Leukocyte Esterase Negative (NEGATIVE) 11/10/23 17:15 Urine RBC 0-2 /HPF (0-3) 11/10/23 17:15 Urine WBC 0-2 /HPF (0-5) 11/10/23 17:15 Ur Squamous Epith Cells Rare /HPF (NEGATIVE) 11/10/23 17:15 Amorphous Sediment 1+ /HPF (NEGATIVE) 11/10/23 17:15 Urine Bacteria Trace /HPF (NEGATIVE) 11/10/23 17:15 Ur Culture Indicated? No/not indicated 11/10/23 17:15 Digoxin < 0.20 ng/mL (0.9-2) L 11/08/23 05:25 Plan (1) Cancer, metastatic to liver: Status: Acute Plan: We will plan on transferring the patient to [facility] for inpatient hospice over the next day or 2. We had originally planned for home hospice but the patient's family reports that they would not be able to help care for her given that she has become so ill. (2) Pancreatic mass: Status: Acute (3) Abdominal pain: Status: Acute Qualifiers: Abdominal location: generalized Qualified Code(s): R10.84 - Generalized abdominal pain Plan: Check CT abdomen and pelvis with IV and p.o. contrast. Consult general surgery. IV morphine for pain control. Make patient n.p.o. for now. (4) Generalized weakness: Status: Acute (5) Leukocytosis: Status: Acute Plan: And IV Levaquin 500 mg IV daily today. Continue patient on IV Zosyn as well. (6) Nausea: Status: Acute Plan: IV or p.o. Zofran. (7) Hyperglycemia: Status: Acute Plan: Check hemoglobin A1c. (8) Hypertension: Status: Chronic Qualifiers: Hypertension type: essential hypertension Qualified Code(s): I10 - Essential (primary) hypertension Plan: Add metoprolol to tartrate 25 mg 1 p.o. twice daily. Recheck blood pressure later today and again tomorrow morning. If it remains elevated and she remains slightly tachycardic we will increase the dose to 50 mg twice daily.
[2023-11-15 04:58] LABS: BASOPHILS # (AUTO) 0.1 X10^3/uL (0.0-0.1); BASOPHILS % (AUTO) 0.7 % (0.2-1.0); EOSINOPHILS # (AUTO) 0.1 x10^3/uL (0.0-0.2); EOSINOPHILS % (AUTO) 0.8 % (0.9-2.9); HEMATOCRIT 36.8 % (36.0-47.0); LYMPHOCYTES % (AUTO) 6.1 % (21.0-51.0); MEAN CORPUSCULAR HEMOGLOBIN 30.7 pg (27.0-34.0); MEAN CORPUSCULAR HGB CONC 32.7 g/dL (33.0-35.0); MEAN CORPUSCULAR VOLUME 94.1 fL (80.0-100.0); MONOCYTES % (AUTO) 12.1 % (0.0-13.0); NEUTROPHILS % (AUTO) 80.3 % (42.0-75.0); PLATELET COUNT 240 X10^3/uL (150.0-450.0); RED BLOOD COUNT 3.91 X10^6/uL (3.5-5.4); RED CELL DISTRIBUTION WIDTH 14.6 % (11.6-16.5); WHITE BLOOD COUNT 16.2 X10^3/uL (3.6-10.0)
[2023-11-15 05:14] LABS: ALANINE AMINOTRANSFERASE 22 Units/L (12-78); ALBUMIN 1.8 g/dL (3.4-5.0); ALKALINE PHOSPHATASE 122 Units/L (46-116); ASPARTATE AMINO TRANSFERASE 75 Units/L (15-37); BLOOD UREA NITROGEN 41 mg/dL (7-18); CALCIUM 8.7 mg/dL (8.5-10.1); CARBON DIOXIDE 16.5 mmol/L (21-32); CHLORIDE 100 mmol/L (98-107); COR CA(FOR HYPOALB) 10.5 mg/dL (8.5-10.1); CREATININE 2.47 mg/dL (0.55-1.02); GLUCOSE 93 mg/dL (65-99); MAGNESIUM 2.4 mg/dL (2.0-2.9); SODIUM 133 mmol/L (136-145); TOTAL PROTEIN 4.8 g/dL (6.4-8.2); eGFR NON BLACK RACES 20 (>60)
[2023-11-15 05:19] LABS: POTASSIUM 5.2 mmol/L (3.5-5.1)
[2023-11-15] MEDS: NS 1,000 ML IV 1,000 ML IV SCH (09:34)
[2023-11-15 09:39] VITALS: BP 130/60; PULSE 54; TEMP 97.8; O2SAT 95
[2023-11-15 10:15] VITALS: RESP 20
[2023-11-15] MEDS: VALIUM INJ IVP ONE (10:56)
[2023-11-15] MEDS ORDERED: ZOSYN VIAL 3.375 GRAMS 3.375 G in NS 100 ML IV 100 ML IV SCH (21:00)
[2023-11-16] MEDS ORDERED: LEVAQUIN PREMIX IV 250 MG 250 MG/50 ML BAG IV SCH (09:00)
== END 2023-11-15 10:55 | DRG 436 ==
LOC: MED/SURG
PROVIDERS: ADMIT Family Medicine; ATTEND Family Medicine
DX: I48.91 Unspecified atrial fibrillation; R10.84 Generalized abdominal pain; R60.0 Localized edema; E87.1 Hypo-osmolality and hyponatremia; R79.82 Elevated C-reactive protein (CRP); R11.2 Nausea with vomiting, unspecified; K86.89 Other specified diseases of pancreas; C25.2 Malignant neoplasm of tail of pancreas; R63.0 Anorexia; R53.1 Weakness; J90 Pleural effusion, not elsewhere classified; I10 Essential (primary) hypertension; C78.7 Secondary malignant neoplasm of liver and intrahepatic bile duct; G89.3 Neoplasm related pain (acute) (chronic); E83.42 Hypomagnesemia; R26.89 Other abnormalities of gait and mobility; Z68.23 Body mass index [BMI] 23.0-23.9, adult